=== PATIENT | female | born 1935 | race Caucasian/White ===

== ENCOUNTER 2016-07-30 18:20 | Inpatient (IN) | payer MEDICARE, BC ==
[~2016-07-30] VITALS: Ht 165.1 cm; Wt 126.1 kg
--- NOTE | ~2016-07-30 | DS ---
PATIENT'S NAME: MARY PARRA [facility] AGE: 80 Y [address] ROOM: [place] [address] [place] [facility] [place]: 07/30/2016 Discharge Summary DISCHARGE DATE: 08/06/2016 FAMILY PHYSICIAN: Lucia Preciado PA-C ATTENDING PHYSICIAN: oNah ALFRED PRIMARY DIAGNOSES: 1. Right femur fracture, status post open reduction internal fixation. 2. Polycystic kidney disease. 3. End-stage renal failure, on peritoneal dialysis. 4. Coronary artery disease, status post coronary artery bypass grafting. 5. Pulseless electrical activity in the setting of anesthesia-induced hypotension. 6. Chronic diastolic congestive heart failure. 7. Essential hypertension. 8. Restless legs syndrome. 9. Hyperparathyroidism. 10. Pelvic fractures. 11. Moderate protein-calorie malnutrition. OPERATIONS/PROCEDURES: Open reduction and internal fixation of right femoral neck fracture performed on 08/01/[address] Fall. HISTORY OF PRESENTING ILLNESS/REASON FOR ADMISSION: Please refer to the H and P dictated on 07/30/[address] Alfred. HOSPITAL COURSE: The patient was admitted to the hospital as noted above after a mechanical fall which occurred on the date of admission. She was seen and evaluated by Orthopedic Surgery and recommended for operative repair. Because of electrolyte abnormalities and ongoing peritoneal dialysis, she was felt to be at intermediate risk for surgery. Troponin evaluations noted at the time of initial evaluation were felt to be secondary to her renal dysfunction. Although she has a known history of diastolic congestive heart failure, she was felt to be adequately compensated and remained compensated over the course of her hospital stay. At the point of operative repair, the patient became profoundly hypotensive at the initiation of propofol. She did develop an episode of pulseless electrical activity and was resuscitated with fluids and pressors. She did not have any residual complication after this. Cardiology was consulted because of the episode, however. No specific additional cardiac evaluation or interventions were made, and she remained stable over the course of the remainder of her hospital stay. Her progress was slow. Pain was mildly limiting factor. She did receive a PATIENT'S NAME: MARY PARRA [facility] AGE: 80 Y [address] ROOM: [place] [address] [place] [facility] [place]: 07/30/2016 Discharge Summary DISCHARGE DATE: 08/06/2016 FAMILY PHYSICIAN: Lucia Preciado PA-C ATTENDING PHYSICIAN: Noah ALFRED variety of supportive cares and clinical monitoring. Nephrology continued to provide assistance, and she continued cycling with her peritoneal dialysis machine. She did receive physical therapy and occupational therapy. A variety of options for long-term care and retirement were looked at. Because of her multiple medical comorbidities and expected extended recovery, Physiatry was consulted. [facility] she would be a suitable candidate for inpatient rehab and arrangements were made for her to be transferred there. By the end of the day on 08/06/2016, it was felt she would be stable enough for discharge to inpatient rehab with plans for close clinical followup with Physiatry, the hospitalist service, and Orthopedic Surgery. DISCHARGE INSTRUCTIONS: DIET: Renal prudent as tolerated. ACTIVITY: Nonweightbearing right lower extremity. Weightbearing as tolerated on the left lower extremity. She will have ongoing physical therapy, occupational therapy on the rehab floor. MEDICATIONS: 1. Ascorbic acid 500 mg p.o. daily. 2. Atorvastatin 10 mg p.o. q.h.s. 3. Calcitriol 0.25 mcg p.o. daily. 4. Carvedilol 6.25 mg p.o. b.i.d. 5. Vitamin D 1000 units p.o. daily. 6. Colace 100 mg p.o. b.i.d. 7. Pepcid 20 mg p.o. daily. 8. Gentamicin topical daily. 9. Heparin 5000 units subcu b.i.d. for deep venous thrombosis prophylaxis. 10. Aspirin 81 mg p.o. daily. 11. Losartan 25 mg p.o. b.i.d. 12. Reglan 5 mg p.o. q.a.c. 13. Metolazone 2.5 mg p.o. q. Tuesday and Tuesday at 8:30 a.m. 14. Fish oil 2000 mg p.o. b.i.d. 15. MiraLAX 17 g p.o. daily. 16. Mirapex 0.125 mg p.o. q.h.s. 17. Renvela 1600 mg p.o. t.i.d. 18. Demadex 100 mg p.o. b.i.d. 19. Vitamin E 400 mg p.o. daily. 20. Acetaminophen 500-1000 mg p.o. q.6 hours p.r.n. 21. [place] 5/325, 0.5-1 mg p.o. q.6 hours p.r.n. pain. 22. Tessalon Per[place] 100 mg p.o. t.i.d. p.r.n. 23. Dulcolax 10 mg ID daily p.r.n. PATIENT'S NAME: MARY PARRA [facility] AGE: 80 Y [address] ROOM: [place] [address] [place] [facility] [place]: 07/30/2016 Discharge Summary DISCHARGE DATE: 08/06/2016 FAMILY PHYSICIAN: Lucia Preciado PA-C ATTENDING PHYSICIAN: Noah ALFRED 24. Loratadine 10 mg p.o. daily p.r.n. 25. Milk of magnesia 30 mL p.o. daily p.r.n. 26. Nitroglycerin 0.4 mg sublingually q.5 minutes x3 p.r.n. chest pain. 27. Senna 2 tablets p.o. q.h.s. 28. Erythropoietin 40,000 units subcu with dialysis per Nephrology direction. Total time spent on discharge process 45 minutes. MD MARIANNE FOSS/yoel /[id number] d: 08/07/16 0308 t: 08/19/16 1814, DISCHARGE SUMMARY
--- NOTE | ~2016-07-30 | ECHO ---
Transthoracic Echocardiography Report (TTE) Demographics Patient Name MARY PARRA Date of Study 07/31/2016 Patient Number [id number] Visit Number [id number] Date of 1935 Room Number G3218 Gender Female Number Age 80 year(s) Referring Field Support Technician Jean-Claude RVT, RDCS Physician Nadia Physician Interpreting Esteban Cordova Exercise Instructor Physician Wale Cheema MD Supervising Ordering Melony Ashford MD, MD/MLP Physician Nurse Stress Watch Repairer Apprentice Conclusions Contractility Score Summary Normal Left Ventricular contractility was noted. Summary Normal LV/RV size and systolic function. The estimated left ventricular ejection fraction is 65-70%. Moderate concentric left ventricular hypertrophy. Diastolic assessment reveals Grade I diastolic dysfunction. Mild biatrial enlargement. No significant valvular disease. Procedure Type of Study TTE procedure:2D Echocardiogram, M-Mode, Doppler , Color Doppler. Procedure Date Date: 07/31/2016 Start: 08:26 AM Study Location: Inpatient Portable Technical Quality: Adequate visualization Indications:Preop cardiac evaluation. Additional Indications:elevated troponin Appropriate Use Criteria: 9 Patient Status: DIMA HR: 79 bpm BP: 122/59 mmHg M-Mode/2D Measurements LV Diastolic Dimension: 3.63 cm LV Systolic Dimension: 1.78 cm LV Septum Diastolic: 1.28 cm LV PW Diastolic: 1.15 cm AO Root Dimension: 2.2 cm Cardiac Output: 5.43 l/min AV Cusp Separation: 1.6 cm RV Diastolic Dimension: 1.93 cm LA volume: 25 ml LVOT: 2 cm RV Base: 2 cm LVOT VTI: 21.9 cm RV Mid: 1.83 cm LV Stroke volume: 68.77 ml TAPSE: 1.68 cm TDI-S': 11.2 cm/s Doppler Measurements AV Peak Velocity: 1.05 m/s MV Peak E-Wave: 0.76 m/s AV Peak Gradient: 4.41 mmHg MV Peak A-Wave: 1.29 m/s AV Mean Gradient: 3 mmHg MV E/A Ratio: 0.59 LVOT Peak Velocity: 0.95 m/s MV P1/2t: 95 msec TR Gradient:19.18 mmHg PV Peak Velocity: 0.88 m/s Estimated RAP:3 mmHg PV Peak Gradient: 3.06 mmHg Estimated RVSP: 22 mmHg Estimated PASP: 22.18 mmHg E' Septal Velocity: 0.04 m/s A' Septal Velocity: 0.1 m/s E' Lateral Velocity: 0.08 m/s A' Lateral Velocity: 0.14 m/s Findings Left Ventricle Moderate concentric left ventricular hypertrophy. Diastolic assessment reveals Grade I diastolic dysfunction. Right Ventricle Normal right ventricle structure and function. Left Atrium LA is mildly dilated. Right Atrium RA is mildly dilated. Mitral Valve Mild mitral annular calcification. Trivial mitral regurgitation by color Doppler. Aortic Valve Mild AV sclerosis. Tricuspid Valve Trivial tricuspid regurgitation by color Doppler. Pulmonic Valve PV is not well visualized. Pericardial Effusion No evidence of pericardial effusion. Pleural Effusion No evidence of pleural effusion. Contractility Score LV regional wall motion:(0-Non visualized 1-Normal 2-Hypokinesis 3-Akinesis 4-Dyskinesis 5-Aneurysm) Signature dtt: CLARK OCHOA dtd: 07/31/16 0826 Physician Self Edit
--- NOTE | ~2016-07-30 | CON ---
PATIENT'S NAME: MARY PARRA [facility] AGE: 80 Y [address] ROOM: [address] [place], [place] [address] [place] [facility] [place]: 07[place]/2016 Consultation DISCHARGE DATE: FAMILY PHYSICIAN: PHYSICIAN, UNKNOWN ATTENDING PHYSICIAN: Noah MOORE REFERRING PHYSICIAN: JAMES GARRETT CHIEF COMPLAINT: Right hip pain status post mechanical fall. HISTORY OF PRESENT ILLNESS: This is an 80-year-old female who says that she was walking outside and while she was walking, she accidentally tripped on her right foot and fell on the ground. She fell on her right side of the hip and she denies any head trauma or any syncope or any chest pain or shortness of breath or palpitation prior to the fall. There was also no seizure activity observed. After the fall, the patient complained of pain in the right hip and could not get up. Family member brought the patient to [facility] for evaluation. Over there, the patient had imaging performed and was found to have right hip/femur fracture. The patient was transferred here for further care. At baseline, the patient's METS score is less than 4. The patient has been complaining of exertional dyspnea with daily activities such as walking 1 block or vacuuming or doing house chores. The patient does denies any chest pain at rest or exertion. The patient denies shortness of breath at rest. The shortness of breath is only with exertion. The patient had a history of coronary artery disease status post bypass surgery in March 2016 done in [place]. The patient says that after the surgery, she does not complain of any more chest pain, but she does have exertional dyspnea. The patient also has a history remarkable for end-stage renal disease from polycystic kidney disease, has been on peritoneal dialysis for the last 3 years and she does the peritoneal dialysis every night at home. She also carries the diagnosis of congestive heart failure in the past, but details not clear and that she cannot remember when was the last time she had an echo. REVIEW OF SYSTEMS: As mentioned in the history of present illness. All other systems were reviewed and were negative except those mentioned in the history of present illness. PAST MEDICAL HISTORY: 1. End-stage renal disease from polycystic kidney disease on peritoneal dialysis for the last 3 years every night at home. 2. Coronary artery disease status post CABG back in March 2016 in [place]. 3. Hypertension. 4. History of CHF, not sure which type. PATIENT'S NAME: MARY PARRA [facility] AGE: 80 Y [address] ROOM: [address] [place], [place] [address] [place] [facility] [place]: [place]2016 Consultation DISCHARGE DATE: FAMILY PHYSICIAN: PHYSICIAN, UNKNOWN ATTENDING PHYSICIAN: Noah MOORE 5. Gastroesophageal reflux disease. 6. Hyperlipidemia. 7. Gout. ALLERGIES: REQUIP. HOME MEDICATIONS: We will have to be addressed in the morning with the patient's pharmacy given that the patient does not remember which medication she is taking. The patient does deny any blood thinner. SOCIAL HISTORY: The patient denies any alcohol or illegal drug or cigarette use. PAST SURGICAL HISTORY: 1. Status post open heart surgery bypass in March 2016 in [place]. 2. Status post total abdominal hysterectomy and bilateral salpingo- oophorectomy in the past. FAMILY HISTORY: Father from myocardial infarction at age 60. Also had polycystic kidney disease. Mother from old age from a cause that she could not remember in her 90s. PHYSICAL EXAMINATION: VITAL SIGNS: At the time of my dictation, temperature 98.3, heart rate 84, respirations 16, blood pressure 157/68, saturation 94% on 1.5 L of nasal cannula. GENERAL APPEARANCE: Alert and oriented x3, in no acute distress. HEENT: Pupils equally round and reactive to light. Extraocular muscles intact. Nasal turbinates are normal bilaterally. Moist oral mucosa. NECK: No obvious JVD on examination. CARDIOVASCULAR: Regular rate and rhythm. No murmur. No rubs. No gallops. Normal S1, S2. RESPIRATORY: Clear to auscultation. No rales. No rhonchi. No crackles. No wheezing at the moment. ABDOMEN: Distended from the peritoneal dialysis, soft, nontender, bowel sounds decreased, no palpable mass. EXTREMITIES: No edema in upper or lower extremities. NEUROLOGICAL: Grossly nonfocal. SKIN: No ulcer, no rash, no cyanosis. MUSCULOSKELETAL: Right lower extremity not examined due to right hip fracture. She can wiggle her toes bilaterally. Left lower extremity intact in muscle strength. PATIENT'S NAME: MARY PARRA [facility] AGE: 80 Y [address] ROOM: [address] [place] [address] [place] [facility] [place]: 07/30/2016 Consultation DISCHARGE DATE: FAMILY PHYSICIAN: PHYSICIAN, UNKNOWN ATTENDING PHYSICIAN: Noah MOORE NEUROLOGIC: Sensation intact. Dorsalis pedis pulse and posterior tibialis pulses intact bilaterally +2. Muscle strength did not examine on the right lower extremity due to the right hip fracture. She can wiggle her toes bilaterally. Otherwise, unremarkable. LABORATORY DATA: CPK 129, troponin 0.074, proBNP 9263, white blood cell 10.7, hemoglobin 12.8, hematocrit 40.9, MCV 102.8, platelet 172, glucose 144, BUN 71, creatinine 12.6. Sodium 138, potassium 5.9, chloride 94, CO2 26, calcium 9.8, GFR 3, anion gap 23.9, phosphorus 7.2, albumin 3.1, INR 1.11. PTT 28. Urinalysis 100% leukocytes, 20-50 white blood cells, many bacteria, negative nitrite. The patient denies any dysuria. CK-MB 6.5. IMAGING STUDY: Chest x-ray on admission, the official report is pending. Based on my review, no gross abnormality. X-ray from the outside facility show right hip/femur fracture. EKG on admission on 07/30/2016, at 2327 hours, heart rate of 88, sinus rhythm. Left axis deviation. Evidence of right bundle-branch block which is complete with a QRS of 124 milliseconds. I have evidence of left axis deviation. I do not appreciate ST elevation or ST depression. Sinus rhythm, heart rate of 88, QTc 433 milliseconds, ME of 172 milliseconds. No prior EKG for comparison. ASSESSMENT AND PLAN: 1. Regarding her right hip/femur fractures status post mechanical fall. Defer to the orthopedic surgery for evaluation and management. 2. Regarding her preoperative medical evaluation for noncardiac surgery. Orthopedic surgery is considered as intermediate risk surgery. Currently, the patient is not medically cleared for surgery given that she still has a hyperkalemia. I do not appreciate hyperkalemia changes on EKG at the moment. The patient is currently getting the peritoneal dialysis. I will check another potassium level later on tonight and then 1 more time in the hr specialist. Further plan will depend on clinical course. She is also not medically cleared because I will be getting a transthoracic echo in the morning looking for any wall motion abnormality and ejection fraction and valvulopathy. The patient does have troponin elevation. On EKG, I do not appreciate any ST elevation or depression. The troponin elevation could be from the end-stage renal disease, on dialysis. However she also does have a history of open heart surgery bypass in March 2016 in [place]. I will get an echo in the morning. If echo is abnormal, I will consult Cardiology. I will keep cycling cardiac enzymes PATIENT'S NAME: MARY PARRA [facility] AGE: 80 Y [address] ROOM: [place] [address] [place] [facility] [place]: 07[place]/2016 Consultation DISCHARGE DATE: FAMILY PHYSICIAN: PHYSICIAN, UNKNOWN ATTENDING PHYSICIAN: Noah MOORE every 6 hours for now. I will get a one more EKG in the morning. She has elevation of proBNP 9263, could be from the end-stage renal. I will check one more time in the morning. She is getting the dialysis right now. Further plan will depend on clinical course. 3. History of end-stage renal disease, on dialysis. Currently is on peritoneal dialysis every night. 4. Regarding her history of coronary artery disease status post CABG in March 2016. As mentioned before, refer to the #1 for details. 5. Regarding her hypertension. Home medication will be addressed in the morning. Currently, the patient is getting IV hydralazine p.r.n. for blood pressure control. She is also getting dialysis. 6. Regarding her history of CHF. Not sure which type. I will get an echo in the morning to see for any wall motion abnormality, ejection fraction, and also any valvulopathy. 7. Regarding her history of gastroesophageal reflux disease. The patient is on famotidine 20 mg p.o. daily. 8. Regarding her DVT prophylaxis. The patient will be on foot pump. CODE STATUS: She is a DNR/DNI. Time spent in care on the day of consultation 50 minutes including chart review, interviewing the patient, examining the patient, addressing all the question and concern that the patient had. I also went over the plan of care and answered every question that the patient's daughter had at the bedside. I also went over the plan of care with the nurse. More than half of the total time spent was in counseling and addressing all the questions and concerned that the patient had and going over the plan of care with the patient and the patient family member. The remaining of the total time spent was in chart review and also in the interviewing the patient and examining the patient. Further plan will depend on clinical course. MICHAEL ODEN MD CC/modl /[id number] d: 07/31/16 0320 t: 08/10/16 0653, CONSULTATION REPORT
--- NOTE | ~2016-07-30 | OR ---
PATIENT'S NAME: MARY LAZARO [facility] AGE: 80 Y [address] ROOM: [address] [address] [place] [facility] [place]: 07/30/2016 OR/Procedure Report DISCHARGE DATE: FAMILY PHYSICIAN: PHYSICIAN, UNKNOWN ATTENDING PHYSICIAN: Noah MOORE SURGEON: Rafael Duffy MD TOUCHER UP: DATE OF PROCEDURE: 08/01/2016 DIAGNOSES: 1. Impacted valgus right femoral neck fracture. 2. Multiple pelvic ring fractures. PROCEDURE: 1. Percutaneous screw fixation of right femur fracture. 2. Conservative care of multiple pelvic ring fractures. ANESTHESIA: General. INDICATION: Osteoporosis with valgus impacted right femoral neck fracture and also multiple pelvic ring fractures, very osteoporotic. She is in renal failure, sickly lately, she has been medically optimized. Family understands risks, benefits, and alternatives. Certainly, there is risk that the hip may not heal. Fixation may fail and may need to be converted to an arthroplasty. Also pelvic fractures will further delay her mobilization, risks, benefits, and alternatives have all been discussed. She certainly at risk for additional fractures in the future, needs to avoid falls. DESCRIPTION OF PROCEDURE: Ms Lazaro was taken to the operating room, 2 g of Kefzol given intravenously for prophylaxis. She has been medically optimized including with dialysis. General anesthetic was administered via endotracheal tube. For a period time after the induction, she was in shock, but the patient was resuscitated and felt to be stable for the procedure. She was placed on the hip fracture table, gentle traction, with internal rotation of the right leg and left leg was protected in a flexed position with the candy- cane. Right hip, flank, and lower extremity prepared with DuraPrep, draped sterilely. A 2-cm incision was made in line with the axis of the femoral neck. Using the Synthes 7.3 cannulated screws. Three guide pins were placed. Two superiorly neck, one anterior, one posterior; and one inferiorly in the mid plane. Holes drilled in the lateral cortex and 7.3 cannulated screw was placed. Fixation was adequate. Wound was irrigated. Fascia closed with #1 Vicryl. Subcutaneous tissue closed with 2-0 Vicryl subcuticular, and skin was closed with darrell. Dry sterile dressing placed. Procedure was done without complication. PATIENT'S NAME: MARY LAZARO [facility] AGE: 80 Y [address] ROOM: [place] [address] [place] [facility] [place]: 07/30/2016 OR/Procedure Report DISCHARGE DATE: FAMILY PHYSICIAN: PHYSICIAN, UNKNOWN ATTENDING PHYSICIAN: Noah MOORE ESTIMATED BLOOD LOSS: From the procedure was nil. FLUID REPLACED: Crystalloids. SPECIMENS: None. DRAINS: None. DISPOSITION: To recovery room in stable condition. RAFAEL DUFFY MD DPM/yoel /[id number] d: 08/01/16 1357 t: 08/02/16 1656, OPERATIVE SUMMARY
--- NOTE | ~2016-07-30 | CON ---
PATIENT'S NAME: MARY PARRA [facility] AGE: 80 Y [address] ROOM: [place] [address] [place] [facility] [place]: 07/30/2016 Consultation DISCHARGE DATE: FAMILY PHYSICIAN: Lucia Preciado PA-C ATTENDING PHYSICIAN: Noah MOORE REFERRING PHYSICIAN: JAMES GARRETT Consult for Dr. Syed. HISTORY OF PRESENT ILLNESS: This 80-year-old lady is referred for rehab GIRP evaluation and admission. She is status post, 1. Percutaneous screw fixation of the right femur fracture. 2. Conservative care for multiple pelvic fractures done on 08/01/2016. Details are on record per Dr. Jai Fall. PAST MEDICAL HISTORY: She has medical history as follows: 1. History of end-stage renal disease and on dialysis. She was currently on peritoneal dialysis. 2. Hypertension. 3. Coronary artery disease, status post CABG x4 vessels in March 2016. 4. Congestive heart failure. 5. Reflux gastric disease. 6. Chronic disease anemia. PHYSICAL EXAMINATION: At the present time, alert and oriented x3. She can comprehend and express without much difficulty. Cranial nerves II through XII are within normal limits. She can swallow without difficulty. She is able to saturate at room air. She can move bilateral upper extremities well with muscle strength of about 4- throughout. Bilateral lower extremities, she cannot move the right lower extremity because of pain in the right hip; however, she can wiggle her toes and move her ankle fairly well. Left lower extremity muscle strength is about 3+ to 4- throughout. Neurologically, she is intact. Deep tendon reflexes are present and equal. She has good bowel and bladder control. Sensation was within normal limits. PATIENT'S NAME: MARY PARRA [facility] AGE: 80 Y [address] ROOM: [place] [address] [place] [facility] [place] DATE: 07/30/2016 Consultation DISCHARGE DATE: FAMILY PHYSICIAN: Lucia Preciado PA-C ATTENDING PHYSICIAN: Noah MOORE MEDICATIONS: She is on the following medications: 1. Norvasc. 2. Heparin sodium. 3. Cozaar. 4. . 5. Metolazone. 6. Dilaudid. 7. MOM. 8. Tylenol. 9. . 10. Demadex. 11. Mirapex. 12. Loleta-3. 13. Lipitor. 14. Claritin. 15. Renvela. 16. Coreg. 17. Senna. 18. Nitroglycerin. 19. Vitamin E. 20. Tessalon. 21. Amoxicillin. 22. Protonix. 23. Vitamin D3. 24. Calcitriol. 25. Vitamin C. 26. Allopurinol. 27. Pepcid. 28. Labetalol. 29. Zofran. 30. NaCl 0.9%. 31. Hydralazine. 32. Dextrose. 33. Delflex. 34. Pacific. 35. Percocet. ASSESSMENT AND PLAN: So far, she can move as I described above, all four. However, right hip movement is with marked pain. She is non-weightbearing at the present time. We will put on intensive bedside therapy, and we will continue to work with her. PATIENT'S NAME: MARY PARRA [facility] AGE: 80 Y [address] ROOM: [place] [address] [place] [facility] [place] DATE: 07/30/2016 Consultation DISCHARGE DATE: FAMILY PHYSICIAN: Lucia Preciado PA-C ATTENDING PHYSICIAN: Noah MOORE At the present time, I feel that she will benefit from intensive rehabilitation of about 2 to 3 weeks and follow on an outpatient basis. All the above was explained to her and her . They verbalized understanding and agreement. Thank you for this referral. I will try to get her to Rehab if she is okayed. MD NATALYA LANZA/yoel /[id number] d: 08/04/162054 t: 08/05/16 0754, CONSULTATION REPORT
--- NOTE | ~2016-07-30 | CON ---
PATIENT'S NAME: MARY LAZARO [facility] AGE: 80 Y [address] ROOM: [place] [address] LOCATION: [facility] ADMIT DATE: 07/30/2016 Consultation DISCHARGE DATE: FAMILY PHYSICIAN: PHYSICIAN, UNKNOWN ATTENDING PHYSICIAN: Noah MOORE REFERRING PHYSICIAN: JAMES GARRETT CARDIOLOGY CONSULT REFERRING PHYSICIAN: Dr. Khan. REASON FOR CONSULT: Hypotension during anesthesia induction. HISTORY OF PRESENT ILLNESS: Mrs. Lazaro is an 80-year-old pleasant female with history of renal failure, on dialysis; coronary artery disease, status post coronary artery bypass graft in March 2016. The patient recently had a fall and had fracture of her femur, and today, she had surgery. Prior to surgery, the patient apparently had dialysis and has been receiving Kayexalate for hyperkalemia. She was given propofol by coating line worker, following which her blood pressure dropped, and she was given inotropes and fluid, following which she recovered. Presently, she is asymptomatic. The family is at bedside. No history of chest pain. The patient has chronic mild shortness of breath. No history of palpitations. The patient stated that post coronary artery bypass surgery, she had syncopal episodes, but since discharge from the hospital in March, she has had episodes of orthostatic hypotension, but no history of syncope. REVIEW OF SYSTEMS: The patient denied any recent change in vision. No history of nausea or vomiting. No history of fever. History of fall. The patient is on chronic peritoneal dialysis. No history of significant weight gain or weight loss recently. No history of urinary symptoms recently. PAST MEDICAL HISTORY: End-stage renal disease from polycystic kidney disease, on peritoneal dialysis; coronary artery disease, status post coronary artery bypass graft in March 2016 in [place]; hypertension; gastroesophageal reflux disease; hyperlipidemia; gout. CURRENT MEDICATIONS: See medication list. SOCIAL HISTORY: The patient denied any alcohol or illegal drug or cigarette use. PATIENT'S NAME: MARY LAZARO [facility] AGE: 80 Y [address] ROOM: [place] [id number] LOCATION: [facility] ADMIT DATE: 07/30/2016 Consultation DISCHARGE DATE: FAMILY PHYSICIAN: PHYSICIAN, UNKNOWN ATTENDING PHYSICIAN: OSCAR,Dagmawe FAMILY HISTORY: Per records, her father of myocardial infarction at age 60. He also had polycystic kidney disease. CURRENT CARDIAC MEDICATIONS: 1. Carvedilol 6.25 mg b.i.d. 2. Atorvastatin 10 mg q.h.s. 3. Losartan 50 mg b.i.d. 4. Torsemide 100 mg b.i.d. 5. Metolazone 2.5 mg Tuesday through Tuesday. PHYSICAL EXAMINATION: VITAL SIGNS: Her pulse rate is 67 beats per minute, respiratory rate is 16, blood pressure is 165/61, temperature 97.6. HEENT: Her head is atraumatic and normocephalic. Mild pallor is present. Tongue is moist. NECK: No significant jugular venous distention is present. Mild carotid bruit is audible on the right side. CVS: S1, S2 are audible. They are regular in rate and rhythm. Grade 2/6 ejection systolic murmur is audible in the left parasternal area. RESPIRATORY: Bilateral vesicular breath sounds are audible. ABDOMEN: Distended. Peritoneal dialysis catheter is in place. EXTREMITIES: Showed no significant pedal edema. Right leg has dressing. NEUROLOGIC: The patient is awake, alert, and oriented. SKIN: Warm and dry. LABORATORY DATA: Sodium 141, potassium was 5.9 earlier, chloride 95, CO2 of 26, glucose 124, BUN 67, creatinine 13.2. AST 16, ALT 17. CPK 99, CK-MB 4.7, troponin 0.06 on July 31. White blood cell count 8, hemoglobin 11.1, platelet count 126. Her most recent echocardiogram done yesterday showed ejection fraction 65% to 70%, moderate concentric left ventricular hypertrophy, mild grade 1 diastolic dysfunction, mild biatrial enlargement. ASSESSMENT: 1. Hypotension during induction of anesthesia with propofol. 2. Coronary artery disease, status post coronary artery bypass graft. 3. End-stage renal disease, on peritoneal dialysis. 4. Hypertension. 5. Right femoral neck fracture. PLAN: 1. The patient had hypotension while getting induction for anesthesia with propofol. It was likely due to hypovolemia. The patient received dialysis today and also has been receiving Kayexalate for hyperkalemia, PATIENT'S NAME: MARY LAZARO [facility] AGE: 80 Y [address] ROOM: [place] [id number] LOCATION: [facility] ADMIT DATE: 07/30/2016 Consultation DISCHARGE DATE: FAMILY PHYSICIAN: PHYSICIAN, UNKNOWN ATTENDING PHYSICIAN: Noah MOORE which could have caused intravascular volume depletion. Her hypotension resolved with inotropes and fluid. Presently, she is normotensive and asymptomatic. We will continue to monitor on telemetry and monitor her blood pressure. Monitor fluid intake and output. Avoid volume depletion. Management of volume status per Nephrology. The patient is on diuretics as per Nephrology. We will continue medical therapy for coronary artery disease with carvedilol, atorvastatin. Please consider addition of aspirin 81 mg daily when okay from orthopedic point of view. 2. Mild elevation in troponin. It is likely due to end-stage renal disease with renal failure. Her presentation is not suggestive of acute coronary syndrome. We will continue medical therapy. The plan of care was discussed with the patient and her family. Thank you for allowing us in taking part in the care of this patient. MD WASHINGTON RENEE/yoel /[id number] d: 08/01/16 2337 t: 08/19/16 1733, CONSULTATION REPORT
--- NOTE | ~2016-07-30 | HP ---
PATIENT'S NAME: MARY LAZARO [facility] AGE: 80 Y [address] ROOM: [place] [address] LOCATION: [facility] [place] ADMIT DATE: 07/30/2016 History & Physical DISCHARGE DATE: FAMILY PHYSICIAN: PHYSICIAN, UNKNOWN ATTENDING PHYSICIAN: Noah MOORE DATE OF SERVICE: 07/30/2016 HISTORY OF PRESENT ILLNESS: Mrs. Lazaro, an 80-year-old white female, renal failure on dialysis with osteoporosis, has been getting by at home, fell at home, comminuted fracture of the right pelvis and also an impacted femoral neck fracture. Known to have osteoporosis, was not having pain in the hip before the fall. No syncope. MEDICATIONS: See list. ALLERGIES: SULFA. PAST MEDICAL HISTORY: Renal failure, on dialysis secondary to polycystic kidney disease. She has had recent open heart surgery and osteoporosis. REVIEW OF SYSTEMS: As above. FAMILY MEDICAL HISTORY: Noncontributory. PERSONAL AND SOCIAL HISTORY: Limited ambulator. Lives at home with her . PHYSICAL EXAMINATION: GENERAL: White female, mild distress. HEENT: Hears and sees. Pharynx is clear. LUNGS: Able to take in a deep breath. HEART: Pulse rate is regular. ABDOMEN: Soft, nontender. MUSCULOSKELETAL: Right hip painful motion. Right pelvis tender. Leg length is equal. Right leg is neurovascularly intact. LABORATORY DATA: X-rays from [place] show femoral neck fracture impacted. On the AP view, it is in valgus. Lateral view, slight apex anterior. PATIENT'S NAME: MARY LAZARO [facility] AGE: 80 Y [address] ROOM: [place] [address] LOCATION: [facility] [place] ADMIT DATE: 07/30/2016 History & Physical DISCHARGE DATE: FAMILY PHYSICIAN: PHYSICIAN, UNKNOWN ATTENDING PHYSICIAN: Noah MOORE ASSESSMENT AND PLAN: Long talk with the patient and the family. Certainly, multiple medical problems, sickly patient, extremely osteopenic bone with a valgus impacted fracture. It would be reasonable to attempt cannulated screw fixation. Certainly with the pelvic fractures, she will not immediately be walking no matter what. They understand if the bone is so osteopenic that the fixation fails and cuts through the head, would have to be converted to an arthroplasty. The alternatives to the fixation would be an arthroplasty at this time. All agree that the least invasive operation is the best choice for Mrs. Large. Risks, benefits, and alternatives were all discussed in detail. LUISA DUFFY MD DPM/yoel /[id number] D: [id number] T: [id number] HISTORY & PHYSICAL
--- NOTE | ~2016-07-30 | CON ---
[facility] A[facility] 80 Y [address] ROOM: [place] [address] [place] [facility] [place] DATE: 07/30/2016 Consultation DISCHARGE DATE: FAMILY PHYSICIAN: PHYSICIAN, UNKNOWN ATTENDING PHYSICIAN: Noah MOORE DATE OF CONSULTATION: 08/01/2016 REFERRING PHYSICIAN: JAMES GARRETT REQUESTING PHYSICIAN: Bay Khan MD. REASON FOR CONSULTATION: End-stage renal failure. The patient is due for hemodialysis treatment. HISTORY OF PRESENT ILLNESS: The patient is an 80-year-old white female, who developed end-stage renal failure from autosomal dominant polycystic kidney disease. She is currently on CCPD. The patient is status post fall and she fractured her right hip. She is therefore in the hospital and she needs a routine dialysis treatment. REVIEW OF SYSTEMS: GENERAL: She denies any fever or chills. She is tired. HEENT: Denies any sore throat or sinus congestion. CARDIOVASCULAR: Denies any chest pain, dyspnea on exertion. RESPIRATORY: Denies shortness of breath, cough, or wheezing. GI: Denies abdominal pain. She has nausea and vomiting. : Denies any dysuria. She makes very little urine. She is a dialysis patient. MUSCULOSKELETAL: She has pain in her right hip. She is status post fracture of the right foot. SKIN: Denies any rash or pruritus. Denies any allergies or hay fever. LYMPHATIC/HEMATOLOGIC: Denied any lymph enlargement or easy bruising. Denies any heat or cold intolerance. PSYCHIATRIC: Denies any sadness, crying spells, poor concentration, or panic attack. PAST MEDICAL HISTORY: End-stage renal failure, on peritoneal dialysis, autosomal dominant polycystic kidney disease, anemia of chronic kidney disease, hyperphosphatemia, history of hyperkalemia, osteoporosis, coronary artery disease, hypertension, gastroparesis, restless legs syndrome, secondary hyperparathyroidism. PAST SURGICAL HISTORY: Peritoneal dialysis catheter placement, coronary artery bypass grafting. PAT[facility]'S [facility] AGE: 80 Y [address] ROOM: [place] [address] [place] [facility] [place]MIT DATE: 07/30/2016 Consultation DISCHARGE DATE: FAMILY PHYSICIAN: PHYSICIAN, UNKNOWN ATTENDING PHYSICIAN: Noah MOORE SOCIAL HISTORY: The patient lives at home with her . She has no history of tobacco or alcohol. FAMILY HISTORY: Her son who was on dialysis is status post renal transplantation. ALLERGIES: SHE HAS NO KNOWN DRUG ALLERGIES. MEDICATIONS: 1. Renvela 1600 mg 3 times a day with meals. 2. Reglan 5 mg 3 times a day. 3. Allopurinol 100 mg every day. 4. Nexium 40 mg a day. 5. Losartan 50 mg twice a day. 6. Metolazone 2.5 mg twice a day. 7. Potassium chloride 20 mEq every day. 8. Lipitor 10 mg q.h.s. 9. Torsemide 100 mg twice a day. 10. Carvedilol 6.25 mg twice a day. 11. Calcitriol 0.25 mcg every day. 12. Aspirin 81 mg a day. 13. Nitroglycerin 0.4 mg every day. PHYSICAL EXAM: GENERAL APPEARANCE: This is an 80-year-old white female lying in the hospital bed, not in acute distress. VITAL SIGNS: Temperature 97.6, pulse is 67, systolic blood pressure 165, diastolic 71. HEAD: Normocephalic. HEENT: Pupils are round and equal. Normal eyelids and conjunctivae. Oral cavity is clear. Dry mucosa. NECK: Trachea is central. No thyromegaly. No bruit. CARDIAC: Heart sounds are audible in all the areas without any gallop or murmur. There is no pericardial rub. Pulses regular in rhythm. LUNGS: Bilaterally clear to auscultate. No intercostal retraction. ABDOMEN: Soft and nontender, could not palpate any liver or spleen. No organomegaly. EXTREMITIES: No clubbing or cyanosis. SKIN: No sign of vasculitis. LYMPH: Did not examine lymphatics. NEUROLOGICALLY: She is alert and oriented x3, and grossly nonfocal. PSYCHIATRIC FUNCTION: She has normal speech, but she is a littler drowsy PATIENT'S NAME: MARY PARRA [facility] AGE: 80 Y [address] ROOM: [address] [place] [id number] [place] [facility] [place]MIT DATE: 07/30/2016 Consultation DISCHARGE DATE: FAMILY PHYSICIAN: PHYSICIAN, UNKNOWN ATTENDING PHYSICIAN: Noah MOORE because of effect of anesthesia. LABORATORY DATA: WBC 8.0, hemoglobin 7.9, hematocrit 37.5, and platelet count 138. Glucose 134, BUN of 67, creatinine 13.2, sodium 141, potassium 5.0, chloride 95, bicarb 26, and calcium 9.6, albumin 2.7. ASSESSMENT: 1. End-stage renal failure. The patient is on peritoneal dialysis. 2. Anemia of chronic disease. 3. Secondary hyperparathyroidism. 4. Hyperphosphatemia. 5. Osteoporosis. 6. Status post fall and fracture of the right hip. 7. Coronary artery disease, status post bypass grafting. 8. Mild hyperkalemia. PLAN: I will obtain her outpatient peritoneal dialysis record and continue her on CCPD. We will check her chemistries on a routine basis. We will keep an eye on her hyperkalemia issues. I would like to thank Dr. Khan for allowing me to participate in this patient's care. M MD JONNIE REDMOND/yoel /[id number] d: 08/01/16 1706 t: 08/05/16 1326, CONSULTATION REPORT
[2016-07-30] MEDS ORDERED: RENVELA800 MG PO (20:43)
[2016-07-30] MEDS ORDERED: AMOXICILLIN500 MG PO (20:43)
[2016-07-30] MEDS ORDERED: METOCLOPRAMIDE H5 MG PO (20:44)
[2016-07-30] MEDS ORDERED: ZYLOPRIM100 MG PO (20:44)
[2016-07-30] MEDS ORDERED: NEXIUM40 MG PO (20:45)
[2016-07-30] MEDS ORDERED: COZAAR25 MG PO (20:45)
[2016-07-30] MEDS ORDERED: METOLAZONE2.5 MG PO (20:45)
[2016-07-30] MEDS ORDERED: MIRAPEX0.125 MG PO (20:46)
[2016-07-30] MEDS ORDERED: LIPITOR10 MG PO (20:46)
[2016-07-30] MEDS ORDERED: K-TAB ER20 MEQ PO (20:46)
[2016-07-30] MEDS ORDERED: COREG6.25 MG PO (20:47)
[2016-07-30] MEDS ORDERED: TORSEMIDE100 MG PO (20:47)
[2016-07-30] MEDS ORDERED: GENTAMICIN SULF30 GM TOP (20:47)
[2016-07-30] MEDS ORDERED: TESSALON PERLE100 MG PO (20:47)
[2016-07-30] MEDS ORDERED: CALCITRIOL0.25 MCG PO (20:48)
[2016-07-30] MEDS ORDERED: VITAMIN D1000 UNIT PO (20:48)
[2016-07-30] MEDS ORDERED: SENOKOT-S TABL1 EACH PO (20:48)
[2016-07-30] MEDS ORDERED: FISH OIL 1,0001 EACH PO (20:49)
[2016-07-30] MEDS ORDERED: VITAMIN E400 UNI2 PO (20:49)
[2016-07-30] MEDS ORDERED: ASCORBIC ACID500 MG PO (20:49)
[2016-07-30] MEDS ORDERED: ASPIRIN LO-DOSE81 MG PO ×2 (20:50)
[2016-07-30] MEDS ORDERED: PROCRIT40000 UNIT SUB-Q (20:52)
[2016-07-30] MEDS ORDERED: NITROSTAT0.4 MG SL (20:53)
[2016-07-30 23:19] LABS: BILIRUBIN URINE NEGATIVE (NEGATIVE); BLOOD URINE 10 /UL (NEGATIVE); COLOR URINE YELLOW (YELLOW); GLUCOSE URINE NEGATIVE (NEGATIVE); KETONE URINE NEGATIVE (NEGATIVE); LEUKOCYTES URINE 100 /UL (NEGATIVE); NITRITE URINE NEGATIVE (NEGATIVE); PROTEIN URINE 100 mg/dL (NEGATIVE); TURBIDITY URINE 2+ (CLEAR); UROBILINOGEN URINE NORMAL (NORMAL)
[2016-07-30 23:30] LABS: HEMATOCRIT 40.9 % (30.0-46.0); HEMOGLOBIN 12.8 g/dL (10.0-15.0); MCH 32.2 pg (27.0-34.0); MCHC 31.3 gm/dL (32.0-36.5); MCV 102.8 fl (83.0-98.0); MPV 10.7 fl (9.4-12.4); PLATELET COUNT 172 K/uL (150-450); RBC 3.98 M/uL (3.00-5.00); RDW-CV 16.8 % (11.9-14.6); WBC 10.7 K/uL (4.0-11.0)
[2016-07-30 23:31] LABS: BACTERIA URINE MANY (NEGATIVE); RBC URINE 0-2 #/HPF (NEGATIVE); RENAL EPITH URINE 0-2 #/HPF (NEGATIVE); WBC URINE 20-50 #/HPF (NEGATIVE)
[2016-07-30 23:44] LABS: INR - (THERAPEUTIC) 1.11 (0.92-1.07); PROTIME 11.7 SECONDS (9.8-11.4); PTT 28 SECONDS (25-32)
[2016-07-30 23:50] LABS: ALBUMIN 3.1 gm/dL (3.5-5.0); CALCIUM 9.8 mg/dL (8.5-10.5); PHOSPHORUS 7.2 mg/dL (2.5-4.9)
[2016-07-30 23:51] LABS: ANION GAP 23.9 (10.0-19.0); CREATININE 12.6 mg/dL (0.5-1.1); POTASSIUM 5.9 mMol/L (3.7-5.1)
[2016-07-31 00:17] LABS: BANDED NEUTROPHIL # 0.3 K/uL (0.0-0.1); BANDED NEUTROPHILS % 3 %; LYMPHOCYTE # 0.5 K/uL (0.8-4.0); LYMPHOCYTE % 5 %; MONOCYTE # 1.2 K/uL (0.0-1.0); SEGMENTED NEUTROPHIL # 8.7 K/uL (1.8-7.8); SEGMENTED NEUTROPHIL % 81 %
[2016-07-31 08:16] LABS: CALCIUM 9.7 mg/dL (8.5-10.5)
[2016-07-31 08:17] LABS: ANION GAP 23.8 (10.0-19.0); CREATININE 12.8 mg/dL (0.5-1.1)
[2016-07-31 08:18] LABS: POTASSIUM 5.8 mMol/L (3.7-5.1)
[2016-07-31 08:42] LABS: PERITONEAL FLUID TURBIDITY CLEAR (CLEAR)
[2016-07-31 09:36] LABS: % PERITONEAL FLUID MONO/MACRO 10 % (0-0); % PERITONEAL FLUID NEUT 50 % (0-25)
[2016-07-31] MEDS ORDERED: CLARITIN10 MG PO (13:15)
[2016-08-01 05:01] LABS: HEMATOCRIT 37.5 % (30.0-46.0); HEMOGLOBIN 11.9 g/dL (10.0-15.0); MCH 32.9 pg (27.0-34.0); MCHC 31.7 gm/dL (32.0-36.5); MCV 103.6 fl (83.0-98.0); MPV 10.4 fl (9.4-12.4); PLATELET COUNT 138 K/uL (150-450); RBC 3.62 M/uL (3.00-5.00); RDW-CV 16.9 % (11.9-14.6)
[2016-08-01 05:27] LABS: ALBUMIN 2.7 gm/dL (3.5-5.0); CALCIUM 9.6 mg/dL (8.5-10.5); CREATININE 13.2 mg/dL (0.5-1.1); TOTAL BILIRUBIN 0.4 mg/dL (0.0-1.5); TOTAL PROTEIN 6.5 g/dL (6.0-8.4)
[2016-08-01 05:58] LABS: ABSOLUTE NEUTROPHIL CT (ANC) 6.2 K/uL (1.8-7.8); BANDED NEUTROPHIL # 0.2 K/uL (0.0-0.1); BANDED NEUTROPHILS % 2 %; LYMPHOCYTE % 12 %; MONOCYTE # 0.8 K/uL (0.0-1.0); SEGMENTED NEUTROPHIL # 6.1 K/uL (1.8-7.8); SEGMENTED NEUTROPHIL % 76 %
[2016-08-01 15:23] LABS: EOSINOPHIL % 0.2 %; HEMATOCRIT 35.3 % (30.0-46.0); HEMOGLOBIN 11.1 g/dL (10.0-15.0); IMMATURE GRANULOCYTE # 0.4 K/uL (0.0-0.3); IMMATURE GRANULOCYTE % 4.6 %; LYMPHOCYTE # 0.6 K/uL (0.8-4.0); MCH 32.6 pg (27.0-34.0); MCHC 31.4 gm/dL (32.0-36.5); MCV 103.8 fl (83.0-98.0); MONOCYTE # 1.4 K/uL (0.0-1.0); MONOCYTE % 17.8 %; NEUTROPHIL # (ANC) 5.7 K/uL (1.8-7.8); NEUTROPHIL % 70.4 %; NRBC % 0 /100WBC (0-0.00); PLATELET COUNT 126 K/uL (150-450); RDW-CV 17.1 % (11.9-14.6)
[2016-08-02 03:00] LABS: HEMATOCRIT 34.3 % (30.0-46.0); HEMOGLOBIN 10.7 g/dL (10.0-15.0); MCH 32.4 pg (27.0-34.0); MCHC 31.2 gm/dL (32.0-36.5); MCV 103.9 fl (83.0-98.0); MPV 10.9 fl (9.4-12.4); PLATELET COUNT 125 K/uL (150-450); RDW-CV 16.8 % (11.9-14.6); WBC 8.7 K/uL (4.0-11.0)
[2016-08-02 03:08] LABS: ANION GAP 20.6 (10.0-19.0); CALCIUM 8.9 mg/dL (8.5-10.5); POTASSIUM 4.6 mMol/L (3.7-5.1)
[2016-08-02 03:09] LABS: CREATININE 12.4 mg/dL (0.5-1.1)
[2016-08-02 05:59] LABS: ABSOLUTE NEUTROPHIL CT (ANC) 6.6 K/uL (1.8-7.8); BANDED NEUTROPHIL # 0.4 K/uL (0.0-0.1); BANDED NEUTROPHILS % 5 %; LYMPHOCYTE # 0.4 K/uL (0.8-4.0); LYMPHOCYTE % 5 %; MONOCYTE # 1.7 K/uL (0.0-1.0); SEGMENTED NEUTROPHIL # 6.2 K/uL (1.8-7.8); SEGMENTED NEUTROPHIL % 71 %
[2016-08-03 06:09] LABS: HEMATOCRIT 38.6 % (30.0-46.0); HEMOGLOBIN 12.2 g/dL (10.0-15.0); MCH 32.1 pg (27.0-34.0); MCHC 31.6 gm/dL (32.0-36.5); MCV 101.6 fl (83.0-98.0); MPV 11.9 fl (9.4-12.4); PLATELET COUNT 136 K/uL (150-450); RDW-CV 16.4 % (11.9-14.6); WBC 7.7 K/uL (4.0-11.0)
[2016-08-03 06:20] LABS: ALBUMIN 2.3 gm/dL (3.5-5.0); ANION GAP 22.6 (10.0-19.0); CALCIUM 9.7 mg/dL (8.5-10.5); PHOSPHORUS 8.7 mg/dL (2.5-4.9); POTASSIUM 4.6 mMol/L (3.7-5.1)
[2016-08-03 08:37] LABS: ABSOLUTE NEUTROPHIL CT (ANC) 6.4 K/uL (1.8-7.8); BANDED NEUTROPHIL # 0.1 K/uL (0.0-0.1); BANDED NEUTROPHILS % 1 %; LYMPHOCYTE # 0.5 K/uL (0.8-4.0); LYMPHOCYTE % 7 %; MONOCYTE # 0.8 K/uL (0.0-1.0); SEGMENTED NEUTROPHIL # 6.3 K/uL (1.8-7.8); SEGMENTED NEUTROPHIL % 82 %
[2016-08-04 06:10] LABS: HEMATOCRIT 31.8 % (30.0-46.0); HEMOGLOBIN 10.2 g/dL (10.0-15.0)
[2016-08-06 06:34] LABS: ALBUMIN 2.1 gm/dL (3.5-5.0); ANION GAP 22.8 (10.0-19.0); CALCIUM 9.7 mg/dL (8.5-10.5); POTASSIUM 4.8 mMol/L (3.7-5.1)
[2016-08-06 06:37] LABS: CREATININE 12.2 mg/dL (0.5-1.1); PHOSPHORUS 8.7 mg/dL (2.5-4.9)
== END 2016-08-06 10:59 | DRG 956 ==
LOC: GMSU 19:06
PROVIDERS: Family Medicine; Internal Medicine; Internal Medicine Nephrology; Orthopaedic Surgery; ADMIT Internal Medicine
PROC: B246ZZZ Ultrasonography of Right and Left Heart (ICD-10-PCS; principal; 2016-07-31)
PROC: 0QH634Z Insertion of Internal Fixation Device into Right Upper Femur, Percutaneous Approach (ICD-10-PCS; 2016-08-01)
DX: S72.001A Fracture of unspecified part of neck of right femur, initial encounter for closed fracture (principal); S32.82XA Multiple fractures of pelvis without disruption of pelvic ring, initial encounter for closed fracture; E44.0 Moderate protein-calorie malnutrition; N18.6 End stage renal disease; I50.32 Chronic diastolic (congestive) heart failure; N25.81 Secondary hyperparathyroidism of renal origin; I13.11 Hypertensive heart and chronic kidney disease without heart failure, with stage 5 chronic kidney disease, or end stage renal disease; Q61.2 Polycystic kidney, adult type; W18.30XA Fall on same level, unspecified, initial encounter; D63.8 Anemia in other chronic diseases classified elsewhere; Z66 Do not resuscitate; I25.10 Atherosclerotic heart disease of native coronary artery without angina pectoris; K21.9 Gastro-esophageal reflux disease without esophagitis; M81.0 Age-related osteoporosis without current pathological fracture; Z95.1 Presence of aortocoronary bypass graft; G25.81 Restless legs syndrome; Z68.20 Body mass index [BMI] 20.0-20.9, adult; I95.2 Hypotension due to drugs; T41.295A Adverse effect of other general anesthetics, initial encounter; Y92.234 Operating room of hospital as the place of occurrence of the external cause; Z99.2 Dependence on renal dialysis
CPT/HCPCS: C1713; J0171; J0360; J0690; J1200; J1644; J1650; J2270; J2405; J2916; J7040; J7050; J7120

== ENCOUNTER 2016-08-06 10:50 | Inpatient (IN) | payer MEDICARE, BC ==
[~2016-08-06] VITALS: Ht 160 cm; Wt 53.5 kg
--- NOTE | ~2016-08-06 | CON ---
PATIENT'S NAME: MARY PARRA [facility] AGE: 80 Y [address] ROOM: [id number] [place], [place] [address] [facility] ADMIT DATE: 08/06/2016 Consultation DISCHARGE DATE: 08/27/2016 FAMILY PHYSICIAN: Lucia Preciado PA-C ATTENDING PHYSICIAN: Jaciel Castorena DATE OF CONSULTATION: 08/27/2016 REFERRING PHYSICIAN: JAMES GARRETT LOCATION: General Inpatient Rehab Unit. This is a palliative care referral for hospice discussion. HISTORY OF PRESENT ILLNESS: This 80-year-old female was admitted on 08/06/2016 for an unsteady gait and rehab after having right femur fracture and pelvic ring fractures by Dr. Rafael Fall on 08/01/2016. She was continued on the rehab unit and was getting ready for discharge, and the patient decided she did not want to continue with hemodialysis. She had been doing peritoneal dialysis at home and was to transition into hemodialysis due to peritoneal dialysis not working. The patient had decided she did not want to do that and that she just wanted to go home and be made comfortable. Currently, denies any pain or discomfort. No nausea or vomiting. Does have some lower back pain and foot pain from gout in the past. Takes pain medications off and on, but no pain currently. No shortness of breath. No constipation or diarrhea, just fatigues very easily. She is alert and oriented. PAST MEDICAL HISTORY: End-stage renal disease, on peritoneal dialysis; hypertension; coronary artery disease, status post CABG x4 vessels in March 2016; congestive heart failure; reflux gastric disease, chronic disease; and anemia. SOCIAL HISTORY: The patient lives at home in [place] with her . ALLERGIES: NO KNOWN ALLERGIES. MEDICATIONS: 1. Lipitor 10 mg at h.s. 2. Mirapex 0.125 mg at h.s. 3. Protonix p.o. b.i.d. 4. Renvela 1600 mg t.i.d. 5. Rocaltrol 0.25 mcg daily. PATIENT'S NAME: MARY PARRA [facility] AGE: 80 Y [address] ROOM: [id number] [place], [place] [address] LOC[facility]: [facility] ADMIT DATE: 08/06/2016 Consultation DISCHARGE DATE: 08/27/2016 FAMILY PHYSICIAN: Lucia Preciado PA-C ATTENDING PHYSICIAN: Jaciel Castorena 6. Vitamin D 1000 units daily. 7. Vitamin E 4000 units daily. 8. Zaroxolyn 2.5 mg on Tuesday and Tuesday in the a.m. 9. Zyloprim 100 mg daily. 10. Heparin 5000 units t.i.d. 11. Zofran 4 mg p.o. every 6 hours p.r.n. 12. Claritin 10 mg daily. 13. Enulose daily p.r.n. 14. Enulose 30 mL every 8 hours p.r.n., constipation. 15. Milk of magnesia 30 mL p.r.n., constipation. 16. MiraLAX 17 g p.o. daily. 17. [place] 5/325 mg 1/2 to 1 tab every 6 hours p.r.n., pain or discomfort. 18. Senokot 2 tabs at h.s. p.r.n. 19. Tessalon Perles 100 mg t.i.d. p.r.n., cough. 20. Tylenol Extra Strength 500-1000 mg every 6 hours p.r.n. pain. 21. Ultram 500 mg every 6 hours p.r.n. SOCIAL HISTORY: Lives at home with her . Has 5 children 1 daughter and 4 sons. One daughter is a nurse, Darlene. FAMILY HISTORY: Father had polycystic disease, of an VT at age of 66. Mother had osteoporosis, at 93. Sister had diabetes. SURGICAL HISTORY: Hysterectomy, tonsillectomy, dialysis catheter for peritoneal, CABG 4 vessels in March 2016, and right hip pinning. REVIEW OF SYSTEMS: Review of systems is done and is negative except as mentioned in the HPI. PHYSICAL EXAMINATION: GENERAL: This is an 80-year-old female, well developed, in no acute distress. Alert and oriented, in no acute distress. Tires easily. VITAL SIGNS: Temperature 99.2, pulse 82, respirations 16, blood pressure 157/82, and O2 saturations 91%. She is 5 feet 3 inches, and weighs 117 pounds. SKIN: Warm and dry. Color pale. HEENT: Head: Normocephalic and atraumatic. Sclerae are nonicteric. Conjunctivae are pale pink. Mouth is pink and moist without exudate. LYMPH: No cervical adenopathy or thyromegaly. RESPIRATORY: Clear to auscultation bilaterally. Breath sounds even and regular. PATIENT'S NAME: MARY PARRA [facility] AGE: 80 Y [address] ROOM: [place] [address] LOCATION: [facility] ADMIT DATE: 08/06/2016 Consultation DISCHARGE DATE: 08/27/2016 FAMILY PHYSICIAN: Lucia Preciado PA-C ATTENDING PHYSICIAN: Jaciel Castorena CARDIAC: S1, S2 without murmurs or bruits. No lower extremity edema. ABDOMEN: Soft, nontender. Positive bowel tones. No hepatosplenomegaly. NEURO: Grossly intact. MUSCULOSKELETAL: Appropriate range of motion. Decreased strength in lower extremities. IMPRESSION: 1. Weakness. 2. Fatigue. 3. End-stage renal disease, peritoneal dialysis dependent. PLAN: Met with the patient; her , Jeremias; daughter, Darlene; and son, Serafin. Discussed goals of care. The patient had decided this morning that she did not want to do hemodialysis that was recommended. She and her had talked previously and they had always talked that they would not do hemodialysis. The patient wants to go on comfort cares and hospice. Answered questions and concerns on end-stage kidney disease and comfort cares on hospice. Discussed hospices in [place] area was the [facility]. They do service in [place]. Inquired about equipment needed at home. They already getting equipment through [facility] in [place]. We will notify the hospice team. They do not want a bed or any extra equipment at this time. Hospice notified and will not be able to admit today, but will admit tomorrow morning. We will add in some comfort care medications like Roxanol 20 mg/mL 5-10 mg every 3 hours p.r.n. pain, Ativan 0.5-1 mg every 4 hours p.r.n. anxiety, and atropine 1% ophthalmic drop sublingual 2-4 drops every 4 hours p.r.n., increased respiratory secretions. CODE STATUS AND ADVANCE DIRECTIVE: The patient stated that she had told them on admission she wanted to be a DNR/DNI. Discussed she would may need a POLST form if the patient was transferring. Did complete a POLST (Physician Order for Life-Sustaining Treatment) form. The patient is desiring no chest compressions, do not resuscitate, do not intubate, comfort cares, no feeding tube, and no IV fluids. Original copy sent with daughter. Copy faxed to hospice team. Education was with education being on end-stage renal disease, symptom management, comfort cares, hospice, an advanced directive, and POLST form. Answered all questions and concerns. Total time was 65 minutes for counseling and coordination of care. Thank you for allowing me to assist this patient and family. PATIENT'S NAME: MARY PARRA [facility] AGE: 80 Y [address] ROOM: [place] [address] LOCATION: [facility] ADMIT DATE: 08/06/2016 Consultation DISCHARGE DATE: 08/27/2016 FAMILY PHYSICIAN: Lucia Preciado PA-C ATTENDING PHYSICIAN: Jaciel Castorena PANCHO ORTEGA NP FOR MD GISSELLE MAY/yoel /[id number] d: 08/27/16 2131 t: 08/30/16 1209, CONSULTATION REPORT
--- NOTE | ~2016-08-06 | CON ---
PATIENT'S NAME: MARY PARRA [facility] AGE: 80 Y [address] ROOM: [place] [address] [facility] DATE: 08/06/2016 Consultation DISCHARGE DATE: FAMILY PHYSICIAN: Lucia Preciado PA-C ATTENDING PHYSICIAN: Jaciel Townsend DATE OF CONSULTATION: 08/10/2016 REFERRING PHYSICIAN: JAMES GARRETT Team members reporting include Dr. Townsend; Erlinda Berry, social service liaison; Dianna Henry, RN; Clau Moctezuma, PT; Janna Gutierrez, PT; Kavitha Talley, OT; Jacy Collins, Speech Therapy; Shantel Sanford, therapeutic rec; and Sister Aure Dumont, Pastoral Care. CURRENT STATUS: Rojelio Urena is an 80-year-old woman, admitted to our inpatient rehab unit on August 06 2016 following a right hip femur fracture, who underwent a hip pinning. The patient also has end-stage renal disease and is on peritoneal dialysis. The patient has coronary artery disease, hypertension, history of congestive heart failure, gastroesophageal reflux disease, hyperlipidemia, and gout. The patient is continent of bowel and bladder. We continue to monitor her incision. She takes Tylenol for pain. The patient can transfer sit to supine and supine to sit, minimal assistance; sit to stand, minimal assistance; bed to chair, contact guard assistance using a slide board. Stand pivot transfers are minimal assistance. She is nonweightbearing to the right. She can propel her wheelchair 60 feet at standby assistance. She can dress her upper body at standby to minimal assistance; lower body, dependent to moderate assistance; grooming, standby; bathing, minimal assistance; toilet and shower transfers, dependent to minimal assistance; toileting dependent. The patient is open to pastoral care. She has been complaining of nausea and vomiting. No pharmacy concerns. The patient's Protonix was increased. She is also on Zofran. DISCHARGE PLAN: The patient is receiving 3 hours of PT, OT Tuesday through Tuesday. The patient has daily rehab, nursing, and physiatry involvement as well as therapeutic recreational services 4 days per week. The patient has shown functional improvement and is progressing. Please see her plan of care for specific goals. Plan is for patient to discharge in approximately 10 ti 14 days. Plan is for patient to return to home with care of her family. ERLINDA BERRY FOR JACIEL TOWNSEND MD PATIENT'S NAME: MARY PARRA [facility] AGE: 80 Y [address] ROOM: [place] [address] LOCATION: [facility] ADMIT DATE: 08/06/2016 Consultation DISCHARGE DATE: FAMILY PHYSICIAN: Lucia Preciado PA-C ATTENDING PHYSICIAN: Jaciel Townsend TD/yoel /[id number] d: t: 08/16/16 1523, CONSULTATION REPORT
--- NOTE | ~2016-08-06 | ENPV ---
Vascular Lower Extremities DVT Study Procedure Demographics Patient Name MARY PARRA Date of Study 08/06/2016 Patient Number [id number] Gender Female Date of 1935 Age 80 Visit Number [id number] Height Accession Number [id number] Weight Room Number G3296 BSA BMI Referring Jaciel Castorena Interpreting Krista Urias MD Physician Physician Physician Ordering Reservation Agent Physician Network Applications Specialist Clau Scott, RT,RVT,RDCS Conclusions Summary TECHNIQUE: The veins of the lower extremities on the right and the left were evaluated from the groin to the ankle using agarwal scale, compression, and augmentation. Venous hemodynamics were evaluated with color flow and spectral Doppler. FINDINGS: The deep veins of the legs bilaterally show normal color flow and compressibility without thrombosis. IMPRESSION: NEGATIVE BILATERAL LOWER EXTREMITY VENOUS DOPPLER STUDY. Procedure Type of Study: Veins:Lower Extremities DVT Study, Venous Duplex Lower Extremity Bilateral. Appropriate Use Criteria:9 Patient Status:Routine. Study Location:Inpatient Portable. Technical Quality:Good visualization. - Preliminary reported to:Patient's RN. Velocities are measured in cm/s ; Diameters are measured in cm Right Lower Extremities DVT Study Measurements Right 2D and Doppler Measurements + + + + +------+------+ + !Location !Visualized!Compressibility!Thrombosis!Signal!Reflux!Reflux ! ! ! ! ! ! ! !(sec) ! + + + + +------+------+ + !GSV Thigh !Yes !Yes !None !Phasic!No ! ! + + + + +------+------+ + !Common !Yes !Yes !None !Phasic!No ! ! !Femoral ! ! ! ! ! ! ! + + + + +------+------+ + !Prox !Yes !Yes !None !Phasic!No ! ! !Femoral ! ! ! ! ! ! ! + + + + +------+------+ + !Mid Femoral!Yes !Yes !None !Phasic!No ! ! + + + + +------+------+ + !Dist !Yes !Yes !None !Phasic!No ! ! !Femoral ! ! ! ! ! ! ! + + + + +------+------+ + !Popliteal !Yes !Yes !None !Phasic!No ! ! + + + + +------+------+ + !Gastroc !Yes !Yes !None !Phasic!No ! ! + + + + +------+------+ + !PTV !Yes !Yes !None !Phasic!No ! ! + + + + +------+------+ + !Peroneal !Yes !Yes !None !Phasic!No ! ! + + + + +------+------+ + Left Lower Extremities DVT Study Measurements Left 2D and Doppler Measurements + + + + +------+------+ + !Location !Visualized!Compressibility!Thrombosis!Signal!Reflux!Reflux ! ! ! ! ! ! ! !(sec) ! + + + + +------+------+ + !GSV Thigh !Yes !Yes !None !Phasic!No ! ! + + + + +------+------+ + !Common !Yes !Yes !None !Phasic!No ! ! !Femoral ! ! ! ! ! ! ! + + + + +------+------+ + !Prox !Yes !Yes !None !Phasic!No ! ! !Femoral ! ! ! ! ! ! ! + + + + +------+------+ + !Mid Femoral!Yes !Yes !None !Phasic!No ! ! + + + + +------+------+ + !Dist !Yes !Yes !None !Phasic!No ! ! !Femoral ! ! ! ! ! ! ! + + + + +------+------+ + !Popliteal !Yes !Yes !None !Phasic!No ! ! + + + + +------+------+ + !Gastroc !Yes !Yes !None !Phasic!No ! ! + + + + +------+------+ + !PTV !Yes !Yes !None !Phasic!No ! ! + + + + +------+------+ + !Peroneal !Yes !Yes !None !Phasic!No ! ! + + + + +------+------+ + Signature dtt: Pollo Velasco dtd: 08/06/16 1515 Physician Self Edit
--- NOTE | ~2016-08-06 | CON ---
PATIENT'S NAME: [facility] AGE: 80 Y [address] ROOM: [place] [address] LOCATION: [facility] ADMIT DATE: 08/06/2016 Consultation DISCHARGE DATE: FAMILY PHYSICIAN: Lucia Preciado PA-C ATTENDING PHYSICIAN: Jaciel Castorena DATE OF CONSULTATION: 08/16/2016 REFERRING PHYSICIAN: JAMES GARRETT REFERRING PHYSICIAN: SHANE Dey CONSULTING PHYSICIAN: Concetta Harris MD REASON FOR CONSULTATION: Persistent nausea and vomiting. HISTORY OF PRESENT ILLNESS: The patient is a pleasant 80-year-old white female, who is recently admitted to inpatient rehab unit after hip pinning for a right hip fracture. She also has chronic renal disease and is on peritoneal dialysis. She was complaining of episodes of intermittent dysphagia. She states she has had problems with pills. More recently, the pills have been given with applesauce, and then she has been able to tolerate some of them. She has a longstanding history of heartburn. She haD been using a lot of Tums for this. She stopped them on the advice of the lpta. PAST MEDICAL HISTORY: Significant for end-stage renal disease from polycystic kidney disease, on peritoneal dialysis over the last 3 years; coronary artery disease, status post CABG in March 2016 in [place]; hypertension; history of CHF; gastroesophageal reflux disease; hyperlipidemia; gout. ALLERGIES: REQUIP. MEDICATIONS: 1. Imdur. 2. Vitamin E. 3. Cholecalciferol. 4. Calcitriol. 5. Ascorbic acid. 6. Allopurinol. PATIENT'S NAME: [facility] AGE: 80 Y [address] ROOM: [place] [id number] LOCATION: [facility] ADMIT DATE: 08/06/2016 Consultation DISCHARGE DATE: FAMILY PHYSICIAN: Lucia Preciado PA-C ATTENDING PHYSICIAN: Jaciel Castorena 7. Nystatin. 8. Metoclopramide. 9. Polyethylene glycol. 10. Pantoprazole 40 mg b.i.d. 11. Metolazone. 12. Lactulose. 13. Gentamicin eye drops. 14. Furosemide. 15. Pramipexole. 16. [place]-3 fatty acids. 17. Losartan potassium. 18. Aspirin. 19. Subcu heparin. 20. Atorvastatin. 21. Ondansetron p.r.n. 22. Carvedilol. 23. Senna. 24. Bisacodyl. 25. Sevelamer carbonate. 26. Loratadine p.r.n. 27. Epoetin flor. REVIEW OF SYSTEMS: A detailed 10-point review of system was done and found to be negative other than what is mentioned in the history of present illness and past medical history. PHYSICAL EXAMINATION: GENERAL: Today, she is alert and awake. She seems to be in no acute distress. VITAL SIGNS: Showed temperature 97.7, pulse is 68 per minute, respiratory rate is 16, and blood pressure is 136/96. GENERAL: Reveals mild pallor. No icterus. HEENT: Oral cavity is normal. Nasal passages are clear. CHEST: Clear to auscultation bilaterally. No wheezing. No rhonchi. CARDIOVASCULAR: S1 and S2. ABDOMEN: Soft. I do not elicit any tenderness. She denies any abdominal pain. MUSCULOSKELETAL: She is nonweightbearing after the right hip replacement. She has a pillow under the legs. NEUROLOGICAL: Grossly nonfocal. LABORATORY DATA: Her recent labs show a high ferritin 2300, percent iron is 111 with a TIBC 116, percent transferrin saturation 96%. Complete blood count shows WBC 6.5, hemoglobin 9.8, hematocrit 29.7, platelet count is 208. LFTs are normal. PATIENT'S NAME: MARY PARRA [facility] AGE: 80 Y [address] ROOM: [place] [address] LOCATION: [facility] ADMIT DATE: 08/06/2016 Consultation DISCHARGE DATE: FAMILY PHYSICIAN: Lucia Preciado PA-C ATTENDING PHYSICIAN: Jaciel Castorena IMPRESSION AND PLAN: The patient with a history of persistent nausea, as well as intermittent dysphagia. These symptoms have been going on for a while. She is somewhat adjusting for it now. In view of this, I have scheduled the patient for an upper endoscopy. The procedure of endoscopy was explained in detail to the patient. All risks, including but not limited to, bleeding, perforation, possible need for surgery explained. and asked several questions, and they were duly answered. All questions were answered. We will proceed with an endoscopy tomorrow. MD JODIE THOMAS/yoel /[id number] d: 08/16/16 2309 t: 08/18/16 1748, CONSULTATION REPORT
--- NOTE | ~2016-08-06 | HP ---
PATIENT'S NAME: MARY PARRA [facility] AGE: 80 Y [address] ROOM: [facility] [place] [address] LOCATION: [facility] ADMIT DATE: 08/06/2016 History & Physical DISCHARGE DATE: FAMILY PHYSICIAN: Lucia Preciado PA-C ATTENDING PHYSICIAN: Jaciel Townsend DATE OF SERVICE: This 80-year-old lady is admitted to a rehab unit at [place], [place] on 08/06/2016 for continuous medical treatment and intensive rehabilitation. 1. Unstable gait. 2. Dependent activities of daily and self-care. 3. Status post impacted right femur neck fracture, status post percutaneous screw fixation of the right femur fracture. 4. Status post multiple pelvic ring fractures. Conservative care of multiple pelvic ring fractures. Surgery done on 08/01/2016, details on record per Dr. Rafael Fall MD. She is at the present time nonweightbearing until orthopedic surgeon will advise otherwise. She is admitted for intensive rehabilitation and continuous medical treatment with unstable gait, dependent activities of self-care, and at high risk of falling. Comorbid conditions. She is with a medical history of followin. End-stage renal disease, on dialysis. 2. Hypertension. 3. Coronary artery disease, status post CABG x4 vessels in March 2016. 4. Congestive heart failure. 5. Reflux gastric disease. 6. Chronic disease, anemia. This lady lives with and he is able to help and she is also followed for chronic renal failure with Dr. Syed, our phlebotomy technician. She is at the present time weightbearing as tolerated on left lower extremity. Alert and oriented x3. Vital signs are as follow: Blood pressure 108/55, temperature 97.6, pulse 79 and regular, respiration rate is 14 and regular. She is 5 feet 5 inches tall and weighs 126.1 kg. ALLERGIES: NONE REPORTED TO MEDICATIONS. PATIENT'S NAME: MARY PARRA [facility] AGE: 80 Y [address] ROOM: [id number] [place], [place] [address] LOCATION: [facility] ADMIT DATE: 08/06/2016 History & Physical DISCHARGE DATE: FAMILY PHYSICIAN: Lucia Preciado PA-C ATTENDING PHYSICIAN: Jaciel Townsend MEDICATIONS: She is on the following medications: 1. Delflex 2.5% with dialysis. 2. Delflex 1.5% dextrose 5 L bag with dialysis. 3. Zyloprim 100 mg p.o. daily. 4. Amoxicillin 2000 mg p.o., dental prophylaxis. 5. Vitamin C 500 mg p.o. daily. 6. Lipitor 10 mg p.o. at bedtime. 7. Rocaltrol 0.25 mcg daily. 8. Coreg 6.25 mg twice daily with meals, hold if systolic blood pressure lower than 110. 9. Vitamin D 1000 units every day. 10. Colace 100 mg p.o. twice daily. 11. Pepcid 20 mg p.o. q.i.d. 12. Gentamicin sulfate 3 drops as described. 13. Heparin 5000 units subcu twice daily. 14. Cozaar 25 mg p.o. twice daily. 15. Reglan 5 mg p.o. 3 times daily before meals. 16. 2.5 mg p.o. on Tuesday and Tuesday at 0830 hours. 17. Fish oil 2000 mg p.o. twice daily. 18. MiraLAX 17 g p.o. daily. 19. Mirapex 0.125 mg p.o. every night at bedtime. 20. Renvela 1600 mg p.o. 3 times daily with meals. 21. Demadex 100 mg p.o. twice daily. 22. Vitamin E 400 units p.o. daily. 23. NaCl 250 mL IV per protocol. 24. Tylenol Extra Strength 500-1000 mg q.6 hours p.r.n., do not exceed acetaminophen 4 g q.24 hours. 25. [place] 5/325 0.5-1 tablets q.6 hours p.r.n., again do not exceed acetaminophen 4 g q.24 hours. 26. Tessalon Perles 100 mg p.o. 3 times daily as needed. 27. Dulcolax 10 mg rectally p.r.n. as needed daily. 28. Claritin 10 mg p.o. daily p.r.n. 29. Milk of magnesia 30 mL as needed. 30. Nitrostat 0.4 mg sublingually as needed p.r.n. 31. Senokot 2 tablets p.o. at bedtime as needed p.r.n. 32. Procrit 57502 units subcu per Renal. The patient is able to carry some weight on the left lower extremity. At the present time, she has some pain in the calves. We will send for an evaluation with ultrasound of both legs to see if there is any DVT. All the above was explained to her in detail. She verbalized understanding, in agreement with plan of care. She will stay with us for about maybe 2-3 weeks aiming to discharge on modified independence. She will be on PT, OT, and Speech. PATIENT'S NAME: MARY PARRA [facility] AGE: 80 Y [address] ROOM: [place] [address] LOCATION: [facility] ADMIT DATE: 08/06/2016 History & Physical DISCHARGE DATE: FAMILY PHYSICIAN: Lucia Preciado PA-C ATTENDING PHYSICIAN: Jaciel Townsend We will send in a.m. for urinalysis, CBC, CMS, and prealbumin. We will keep on Dr. Rafael Fall, Dr. Syed, and [facility] to follow as necessary. JACIEL TOWNSEND MD WMS/modl /[id number] D: [id number] T: [id number] HISTORY & PHYSICAL
--- NOTE | ~2016-08-06 | CON ---
PATIENT'S NAME: AYANNA PARRA [facility] AGE: 80 Y [address] ROOM: [address] [place] [address] LOCATION: [facility] ADMIT DATE: 08/06/2016 Consultation DISCHARGE DATE: 08/27/2016 FAMILY PHYSICIAN: Lucia Preciado PA-C ATTENDING PHYSICIAN: Jaciel Townsend DATE OF CONSULTATION: 08/24/2016 REFERRING PHYSICIAN: JAMES GARRETT Team members reporting include Dr. Townsend; Erlinda Berry, social sciences department chair; Shelly Wu, RN; Clau Moctezuma, PT; Janna Gutierrez, PT; Kavitha Talley, OT; Jacy Collins, Speech Therapy; Shantel Sanford, therapeutic rec; and Sister Aure Watters, Pastoral Care. CURRENT STATUS: Ayanna is an 80-year-old woman, admitted to our inpatient rehab unit following a right femur neck fracture with pinning. She is on peritoneal dialysis with end-stage renal disease. She has actually no urine output. She is on a renal low fat diet. She is taking Ensure Compact b.i.d. She can transfer sit to supine and supine to sit, contact guard assistance to minimal assistance; squat pivot transfer, standby assistance. She can propel her wheelchair 50 feet on leveled surfaces at standby assistance and extra time. She can dress her upper body at standby, lower body, minimal to max assistance; grooming, standby; bathing, minimal assistance; shower transfers, contact guard assistance; and feeding, standby. She has met 1/4 short-term OT goals. Comprehension is at standby to mod I; language and expression, standby with occasional word-finding problems; memory and problem solving, minimal to standby assistance. The patient will continue to work on car transfers into the car. She is very open to Pastoral Care and is close to her family. Nystatin is supposed to stop on Tuesday. DISCHARGE PLAN: Initially, the patient was to discharge on Tuesday, August 27, 2016, with home health care; however, the patient decided late on August 26, 2016, that she wanted to go home with hospice care as she wanted to discontinue her dialysis services. Hospice services were set up through [facility]. ERLINDA BERRY FOR JACIEL TOWNSEND MD TD/yoel PATIENT'S NAME: AYANNA PARRA [facility] AGE: 80 Y [address] ROOM: [place] [address] LOCATION: [facility] ADMIT DATE: 08/06/2016 Consultation DISCHARGE DATE: 08/27/2016 FAMILY PHYSICIAN: Lucia Preciado PA-C ATTENDING PHYSICIAN: Jaciel Townsend /[id number] d: 08/30/161958 t: 09/17/16 [facility], CONSULTATION REPORT
--- NOTE | ~2016-08-06 | CON ---
PATIENT'S NAME: AYANNA PARRA [facility] AGE: 80 Y [address] ROOM: [place] [address] LOCATION: [facility] ADMIT DATE: 08/06/2016 Consultation DISCHARGE DATE: 08/27/2016 FAMILY PHYSICIAN: Lucia Preciado PA-C ATTENDING PHYSICIAN: Jaciel Townsend DATE OF CONSULTATION: 08/17/2016 REFERRING PHYSICIAN: JAMES GARRETT Team members reporting include Dr. Townsend; Erlinda Berry, social sciences chair; Dianna Henry, RN; Clau Moctezuma, PT; Janna Gutierrez, PT; Kavitha Talley, OT; Jacy Collins, Speech Therapy; Shantel Sanford, therapeutic rec; and Sister Aure Watters, Pastoral Care. CURRENT STATUS: Ayanna is an 80-year-old woman, admitted to our inpatient rehab unit following a right hip fracture. She is also on peritoneal dialysis for end-stage renal disease. No skin issues. The patient does not have any urine output. She will be having an EGD as of this date. Taking Tylenol for pain. The patient does have some thrush that we are treating. She is getting Ensure Compact b.i.d., and her prealbumin is 23. She can transfer sit to supine and supine to sit at contact guard assistance; sit to stand and stand to sit, contact guard assistance to standby assistance; and bed to chair, doing a scoot technique at standby assistance. She can propel her wheelchair 60 feet at standby assistance. She has met 1/7 long-term PT goals. The patient can dress her upper body at standby; lower body moderate assistance; grooming standby, bathing min assistance; toilet and shower transfers doing a scoot technique at minimal assistance; and toileting, max assistance. She has met 2/5 short-term OT goals. The patient's comprehension is at minimal assistance; language and expression, minimal assistance; memory, max assistance; and problem solving, moderate assistance. Car transfers are currently at standby assistance to contact guard assistance using a slide board. The patient is very close to her family and open to pastoral care. No pharmacy concerns. DISCHARGE PLAN: Patient is receiving 3 hours of PT, OT, and speech Tuesday through Tuesday. The patient has daily rehab, nursing, and physiatry involvement as well as therapeutic recreational services 4 days per week. The patient has shown functional improvement and is progressing. Please see her plan of care for specific goals. Plan is for patient to discharge in approximately 10 days. Plan is for patient to go home with 24-hour care from her family. PATIENT'S NAME: AYANNA PARRA [facility] AGE: 80 Y [address] ROOM: [place] [address] LOCATION: [facility] ADMIT DATE: 08/06/2016 Consultation DISCHARGE DATE: 08/27/2016 FAMILY PHYSICIAN: Lucia Preciado PA-C ATTENDING PHYSICIAN: Jaciel Townsend ERLINDA BERRY FOR JACIEL TOWNSEND MD TD/modl /[id number] d: 08/30/161951 t: 09/17/16 1232, CONSULTATION REPORT
--- NOTE | ~2016-08-06 | DS ---
PATIENT'S NAME: MARY PARRA [facility] AGE: 80 Y [address] ROOM: [address] [place], [place] [address] LOCATION: [facility] ADMIT DATE: 08/06/2016 Discharge Summary DISCHARGE DATE: FAMILY PHYSICIAN: Lucia Preciado PA-C ATTENDING PHYSICIAN: Jaciel Castorena [facility] COURSE: This 80-year-old lady was admitted to rehab unit at [facility] [place], [place], on 08/06/2016 and is discharged to home on 08/27/2016. 1. Unstable gait. 2. Dependent in activities of daily self-care. 3. Status post falling incident and fracture of the femur, right side, status post percutaneous screw fixation of the right femur. Conservative care of multiple pelvic fractures secondary to same incident of falling. She is, at the present time, doing well. Alert, oriented; however, she is on dialysis and has been on dialysis, followed by automotive professional on a regular basis. During her stay with us also, she was consulted to supervisor mold shop, details on record, Dr. Butterfield. She is with chronic renal failure, end stage, and on dialysis. She is, at the present time, alert, oriented. Vitals: Blood pressure 152/68, temperature 98.5, pulse 82, respirations 16. She can propel her wheelchair 50 feet x 2 . She can perform active range of motion to bilateral upper and lower extremities. She is, at the present time, not to drive until she is reevaluated. She is to follow with her family physician as soon as possible. Follow with Dr. Butterfield and Dr. Rafael Fall as he sees fit. Follow up with Dr. Syed as he sees fit. She is on the following medications: 1. Delflex 1.5% with dialysis 30 days. 2. Zyloprim 100 mg daily. 3. Amoxicillin 2000 mg p.o. dental prophylaxis. 4. Aspirin low dose, 81 mg, p.o. daily at bedtime. 5. Lipitor 10 mg p.o. at bedtime. 6. Dulcolax suppository 10 mg rectally daily. PATIENT'S NAME: MARY PARRA [facility] AGE: 80 Y [address] ROOM: [address] [address] LOCATION: [facility] ADMIT DATE: 08/06/2016 Discharge Summary DISCHARGE DATE: FAMILY PHYSICIAN: Lucia Preciado PA-C ATTENDING PHYSICIAN: Jaciel Castorena 7. Rocaltrol 0.25 mcg daily. 8. Coreg 6.25 mg twice daily. 9. Vitamin D 1000 units p.o. daily. 10. Colace 100 mg p.o. b.i.d. 11. Genoptic 3 drops daily. 12. Heparin units subcu 3 times daily. 13. Cozaar 25 mg p.o. twice daily. 14. Zaroxolyn 2.5 mg p.o. on Tuesday and Tuesday. 15. Protonix 40 mg p.o. daily. 16. Mirapex 0.125 mg p.o. daily at bedtime. 17. Renvela 1600 mg p.o. 3 times daily with meals. 18. Demadex 100 mg p.o. twice daily. 19. Vitamin E 400 give one p.o. daily. 20. Tylenol Extra Strength 500 to 1000 mg p.o. q.6 hours, 36, to not exceed acetaminophen 4 g q.24 hours. 21. Angelica 5/325 half to one tablet p.o. q.6 hours as needed, 36 of them, renewal per her family physician. 22. Enulose 30 mL p.o. q.8 hours as needed p.r.n. 23. Milk of magnesia 30 mL as needed p.r.n. 24. Zofran 4 mg p.o. q.6 hours, 30 days, renewal per her family physician on all her medication. 25. MiraLAX 17 g p.o. daily p.r.n. 26. Senokot 2 tablets at bedtime as needed. 27. Ultram 50 mg q.6 hours as needed, give for 30 days. She is given home health, PT, OT, speech, and aide 3 times per week for the coming 30 days and renewal through her family physician. Again, she is not to drive and/or operate any mechanical device. She should follow with Dr. Rafael Fall, Dr. Syed, and Dr. Butterfield as each sees fit, and she should follow with her family physician as soon as possible. All the above was explained to her and her in detail. They verbalized understanding and agreement. MD NATALYA LANZA/modl /[id number] d: 08/26/16 1333 t: 08/27/16 0709, DISCHARGE SUMMARY
[~2016-08-06 10:50] MED LIST: AMOXICILLIN500 MG PO; ASCORBIC ACID500 MG PO; ASPIRIN LO-DOSE81 MG PO; CALCITRIOL0.25 MCG PO; CLARITIN10 MG PO; COREG6.25 MG PO; COZAAR25 MG PO; FISH OIL 1,0001 EACH PO; GENTAMICIN SULF30 GM TOP; K-TAB ER20 MEQ PO; LIPITOR10 MG PO; METOCLOPRAMIDE H5 MG PO; METOLAZONE2.5 MG PO; MIRAPEX0.125 MG PO; NEXIUM40 MG PO; NITROSTAT0.4 MG SL; PROCRIT40000 UNIT SUB-Q; RENVELA800 MG PO; SENOKOT-S TABL1 EACH PO; TESSALON PERLE100 MG PO; TORSEMIDE100 MG PO; VITAMIN D1000 UNIT PO; VITAMIN E400 UNI2 PO; ZYLOPRIM100 MG PO
--- NOTE | 2016-08-06 14:17 | NUR ---
PATIENT ADMITTED TO [facility] FROM [facility]. SHE FELL ON 07/30 AND HAD A PINNING TO RIGHT HIP ON 07/31. ALERT AND ORIENTED X3. HARD OF HEARING. REPORTS HISTORY OF "DULLNESS" TO HANDS AND FEET. +1 EDEMA TO LOWER RIGHT LEG. RIGHT HIP STAPLED, EDGES APPROXIMATED, NO DRAINAGE. DENIES NEED FOR PAIN MEDICATION. LOWER LEGS TENDER, WAITING FOR NONINVASIVE TO DOPPLER THEM. ON TELE FOR NOW, WAITING FOR DC ORDER. PERITONEAL DIALYSIS AT NIGHT. FEEDS SELF, NO ISSUES SWALLOWING. RED SACRAL AREA, CLOSED. IV TO RIGHT AC, FLUSHES WELL. RENAL DIET, REGULAR CONSISTENCY. BM TODAY. HAS VOID TODAY. NAUSEA AT TIMES. NWB TO RIGHT LEG, 2 ASSIST PIVOT TRANSFER.
--- NOTE | 2016-08-07 04:24 | NUR ---
Significant Event: Patient alert and oriented. Is hard of hearing and forgetful at times. Transfers 1-2 Pivot, Non-weightbearing to R) leg. Roma to R) hip, open to air. Has edema to R) leg. Complaints of feeling tightness in hip, given norco and extra strength tylenol. On Peritoneal Dialysis at night. Emesis of 800, recieved order for PRN Zofran. Cooperative with cares. Follow up:
[2016-08-07 04:46] LABS: HEMATOCRIT 30.8 % (30.0-46.0); MCH 32.3 pg (27.0-34.0); MCHC 32.5 gm/dL (32.0-36.5); MCV 99.4 fl (83.0-98.0); MPV 11.1 fl (9.4-12.4); WBC 5.3 K/uL (4.0-11.0)
[2016-08-07 04:51] LABS: PLATELET COUNT 172 K/uL (150-450)
[2016-08-07 05:11] LABS: ALK PHOS 78 IU/L (33-138); ANION GAP 20.9 (10.0-19.0); AST 24 IU/L (10-40); CALCIUM 9.8 mg/dL (8.5-10.5); CHLORIDE 94 mMol/L (96-110); CO2 23 mMol/L (22-32); POTASSIUM 4.9 mMol/L (3.7-5.1); SODIUM 133 mMol/L (135-145); TOTAL PROTEIN 5.6 g/dL (6.0-8.4)
[2016-08-07 05:13] LABS: ALT < 10 IU/L (12-78); BLOOD UREA NITROGEN 93 mg/dL (6-24); CREATININE 12.6 mg/dL (0.5-1.1); ESTIMATED GFR (MDRD EQUATION) 3; TOTAL BILIRUBIN 0.3 mg/dL (0.0-1.5)
[2016-08-07 05:42] LABS: ABSOLUTE NEUTROPHIL CT (ANC) 3.3 K/uL (1.8-7.8); BANDED NEUTROPHIL # 0.2 K/uL (0.0-0.1); BANDED NEUTROPHILS % 3 %; LYMPHOCYTE # 1.1 K/uL (0.8-4.0); LYMPHOCYTE % 21 %; MONOCYTE # 0.7 K/uL (0.0-1.0); SEGMENTED NEUTROPHIL # 3.2 K/uL (1.8-7.8); SEGMENTED NEUTROPHIL % 60 %
--- NOTE | 2016-08-07 15:47 | NUR ---
A-NEW ADMIT TO [facility] DOES PD. ISSUES WITH NAUSEA/VOMITING; TESTING BEING DONE TODAY. HT: 63 IN. ADMIT WT TO [facility] (WHEELCHAIR SCALE): 55.5 KG. BMI: 21.6 LABS: NA 133, K+ 4.9, LGU 113, BUN 93, RESPIRATORY THERAPY DIRECTOR 12.6, ALB 2.0, PHOSPHORUS 8.7, PREALB 20.0 MEDS: ZAROXOLYN, VIT E, MIRALAX, PEPCID, ROCALTROL, VIT C, ZYLOPRIM, DEMADEX, COALCE, REGLAN, PRN BOWEL MEDS, NORCO DIET RX: RENAL/LOW FAT. ENSURE COMPACT BID. PO INTAKE 25-50%. PT'S [id number] COOKS AND BRINGS PT HER MEALS AT EACH MEAL. SHE HAS BEEN FOLLOWING A RENAL DIET FOR SOMETIME AND BOTH PT AND PT'S [id number] ARE VERY KNOWLEDGEABLE ABOUT THE RENAL DIET. EST NUTR NEEDS: 1771-9200 KCALS (30-35 KCALS/KG) 67-83 GM PROTEIN (1.2-1.5 GM/KG) 1 ML FLUID/KCAL D-AT NUTRITION RISK W/INADEQUATE ORAL INTAKE R/T ALT. GI FXN AEB C/O N/V, PT REPORT. I-CONTINUE W/ENSURE COMPACT BID M/E-GOAL: PO INTAKE >/=50% BY NEXT F/U 1)F/U PO INTAKE, SUPPLEMENT, LABS, WT, AND POC IN 3-5 DAYS 2)ASSIST NEEDED
--- NOTE | 2016-08-07 17:46 | NUR ---
Significant Event: Patient alert and oriented. Non weight bearing to right leg. 2 assist. Renal and low fat diet. Family brings in most meals and have been cooking for this diet for a while and are knowledgeable. Does peritoneal dialysis at night. Accurate I&O and daily weight. [place] to right hip intact. Took Zofran IV due to 500ml emesis. Suppository given with scant results. MD here and KUB ordered. Patient is constipated. Soaps suds enema ordered. Patient taking Tylenol for pain. Follow up:
--- NOTE | 2016-08-08 04:19 | NUR ---
Significant Event: Patient alert and oriented. Can be forgetful at times. Hard of hearing. Transfers 1-2A Pivot, non weight bearing to R) leg. Roma intact, open to air. Edema to R) leg. Tylenol last given at 2354 for tightness in hip. Soapsuds enema given with minimal results. Peritoneal dialysis on at night. VSS. Cooperative with cares. Follow up:
--- NOTE | 2016-08-08 15:34 | NUR ---
Significant Event: Patient alert and oriented. Up with 1-2 assist. Non weight bearing to right leg. Pivot transfer. Roma to right hip intact. Peritoneal dialysis at night. Saline lock. Accurate I&O and daily weight. Taking tylenol for pain. Milk of Magnesia and dulcolox suppository given today with no results. Just passed gas. No nausea or vomiting today. Feels much better today. Follow up:
--- NOTE | 2016-08-09 04:19 | NUR ---
Significant Event: Patient alert and oriented. Transfers 1-2A Pivot, non weight bearing to R) leg. [place] to R) hip, open to air and intact. Tylenol and [place]enn[place] given with HS pills. Emesis of 550. Aromatherapy placed to help with nausea. PRN Zofran given. Had two moderate BM's and passing gas. On peritoneal dialysis at night. Accurate I&O. Daily weight. Saline lock to R) AC. VSS. Cooperative with cares. Follow up:
--- NOTE | 2016-08-09 17:03 | NUR ---
Significant Event:PATIENT ALERT AND ORIENTED BUT IS FORGETFUL. VSS. TRANSFERS WITH 1 ASSIST, GAIT BELT PIVOT TRANSFER. SHE IS NON WEIGHT BEARING ON HER RIGHT LEG. TOLERATES THERAPY FAIR. HAS BEEN NAUSEATED SINCE LAST NIGHT BUT IS FEELING BETTER THIS AFTERNOON. HAS NOT EATEN MUCH. DID EAT SOME JELLO AND TOAST THIS AFTERNOON AND SOME PEARS. GIVEN ZOFRAN THIS AM AT 0840. PD CATH INTACT. HAS DENIED PAIN AND REFUSED ANY TYLENOL WHEN OFFERED. WILL MONITOR. FAMILY AT BEDSIDE ALL SHIFT. Follow up:
--- NOTE | 2016-08-10 05:10 | NUR ---
Significant Event: dialysis started at 1930. transfers with 1-2 assist up to wheel chair, non weight bearing to rt. alert and oriented but forgetful. c/o some nausea, but refused zofran. pain to rt lower extremity with movement, denies need for pain med. darrell to rt hip, ecchymosis. sl to rt AC, flushes well. Follow up:
[2016-08-10 07:00] LABS: ALBUMIN 2.2 gm/dL (3.5-5.0); ALK PHOS 92 IU/L (33-138); AST 24 IU/L (10-40); CALCIUM 9.8 mg/dL (8.5-10.5); CO2 24 mMol/L (22-32); SODIUM 133 mMol/L (135-145); TOTAL PROTEIN 6.2 g/dL (6.0-8.4)
[2016-08-10 07:02] LABS: BLOOD UREA NITROGEN 88 mg/dL (6-24); CHLORIDE 89 mMol/L (96-110); CREATININE 12.5 mg/dL (0.5-1.1); ESTIMATED GFR (MDRD EQUATION) 3; TOTAL BILIRUBIN 0.4 mg/dL (0.0-1.5)
[2016-08-10 07:03] LABS: ALT < 10 IU/L (12-78)
--- NOTE | 2016-08-10 08:33 | NUR ---
D: Therapeutic Recreation Initial Assessment on the 08/10/16 I: Patient seen 2 units to begin initial evaluation. Pt has dx of R femur fx with NWB KAL. R: Patient's current living situation and status: house in town Home entrance steps: 2 with railing Living with: Spouses name: Jeremias # of children: 5 (3 close by) Driving: yes, family can provide transportation Ambulating: I Equipment: has cane Hand Dominance: Right Cotton Chopper strength: N/T Eye sight: glasses, some vision problems Reading ability: N/T Hearing: slight IONE Speech: clear Cognition: alert Comprehension: fair Following directions: yes Initiating: yes Eye contact: good Affect: flat COMMUNITY INVOLVEMENT: grocery shopping, orthodoxy weekly, lihealthfinch club, all orthodoxy groups, qucityguru clubs, [employer] study, [employer] for [employer] travel LEISURE INTERESTS: some TV, read some, computer (games, Internet, work), past chana, word puzzles Patient is referred by medical staff for treatment and evaluation in the following areas: Community Skills, Functional Leisure Skills, Participation, Leisure Education/Behaviors, Family Education, Cognitive, Emotional. Information obtained: Interview, Chart Review, Family resource, Observation, other. BARRIERS TO LEISURE: Physical, Lifestyle (reports of anxiety and depression) Transportation Patient determined to be: APPROPRIATE FOR THERAPEUTIC RECREATION ASSESSMENT. TREATMENT WILL INCLUDE: Community living skills training Functional leisure development Physical skills development Cognitive skills development Social skills development Leisure education Emotional/behavioral adaptation Family education Community resources/packet TARGET EQUIPMENT/INFORMATION: Parking Permit will need Community Resources Energy conservation in community setting Van/Service/Taxi Scrip Adapted Leisure Equipment Stress management/Relaxation techniques Functional car transfers Leisure Education Behaviors: Attitude, Awareness, Participation. Patient functional skills level and potential: Fair, pt demonstrates fair mobility with concerns for coping and pain/stress management. Patient oriented ot TR services on Rehab unit. Pt/family provided input into goals setting and plan of care. Pt's goal is to return home and have assistance. P: Target date set with personal goals established. Will continue with POC focusing on pt/family training and education. For additional information please see Nursing Data Base, PT, OT, CM, ST, initial assessments to [facility] and Interdisciplinary Assessments.
--- NOTE | 2016-08-10 13:15 | NUR ---
Significant Event: PATIENT UP 2 ASSIST PIVOT TO CHAIR/BED, NWB TO RIGHT LEG. [place] TO RIGHT HIP INTACT, STAPLED, NO DRAINAGE. BP MEDS HELD THIS MORNING DUE TO BP IN LOW 100S. ALERT AND ORIENTED X3. FORGETFUL. NO NAUSEA UNTIL NOON, SMALL EMESIS. REFUSED ZOFRAN. TYLENOL FOR PAIN X1. PERITONEAL DIALYSIS AT NIGHT. SALINE LOCK TO RIGHT AC. Follow up:
--- NOTE | 2016-08-10 14:53 | NUR ---
A - NUTRITION FOLLOW-UP. DAILY WEIGHT, STABLE PER RECORD. STRICT I&O'S, PD PT. C/O NAUSEA/VOMITING AT TIMES. LABS: NA 133, GLU 120, BUN 88, CREA 12.5, ALB 2.2, PO4 8.7, PRE-ALB 20. NEW MEDS: LACTULOSE, REGLAN. ON DEMADEX. DIET: RENAL/LOW FAT DIET W/ ENSURE COMPACT BID. PER PT, MD WANTS PT TO TRY TO CONSUME HOSPITAL FOOD INSTEAD FROM HOME. TRIED SIPS OF ENSURE COMPACT, YET TO ABLE TO DRINK THE WHOLE BOTTLE. INTAKE 27% X11 MEALS, RANGE FROM REFUSED TO 75%. ENCOURAGED ORAL INTAKE, PT VOICED UNDERSTANDING. EST NEEDS: [id number] KCAL, 67-83 GRAMS PROTEIN, FLUID NEEDS: 1ML/KCAL OR PER MD D - INADEQUATE ORAL INTAKE RELATED TO DECREASED APPETITE EVIDENCED BY PO 27% X11 MEALS. I - 1) CONTINUE W/ ENSURE COMPACT BID. 2) PLEASE CONSULT IF EN IS DESIRED. M/E - GOAL: PT WILL BE ABLE TO TOLERATE >50% OF MEALS AND AT LEAST ONE ORAL SUPPLEMENT PER DAY IN 3-5 DAYS.
--- NOTE | 2016-08-11 04:19 | NUR ---
Significant Event: Patient alert and oriented. Transfers 2A pivot, non weight bearing to R) leg. [place] to R) hip intact. Denied pain. VSS. Peritoneal dialysis at night. Saline lock to R) AC. Cooperative with cares. Follow up:
--- NOTE | 2016-08-11 16:55 | NUR ---
Significant Event:PATIENT ALERT AND ORIENTED BUT IS FORGETFUL. VSS. TRANSFERS WITH 1-2 ASSIST, GAIT BELT SCOOT OR SLIDEBOARD. FAMIILY AT BEDSIDE ALL SHIFT. HAS NOT HAD ANY NAUSEA TODAY AND HAS EATEN FAIRLY WELL. TOLERATED THERAPY FAIR TODAY. GIVEN TYLENOL THIS AFTERNOON AT 1535 FOR COMPLAINTS OF BACK/HIP PAIN. NO OTHER COMPLAINTS. Follow up:
--- NOTE | 2016-08-12 04:44 | NUR ---
Significant Event:A/O. 1-2 assist transfer; scoot or slide board. Peritoneal dialysis during the night. Saline lock to R) AC flushes well. VSS on room air. [place] to R) hip C/D/I; open to air.NWB to right leg. No emesis this shift. Meds whole with applesauce. REquested Tylenol for discomfort @ 0500. BM this shift. Daily weight. Accurate I&O. Call light in reach. Bed alarm on. Follow up:Move to room 90. NWB RLE
[2016-08-12 10:12] LABS: ALBUMIN 2.1 gm/dL (3.5-5.0); ALK PHOS 87 IU/L (33-138); ANION GAP 21.8 (10.0-19.0); AST 24 IU/L (10-40); CALCIUM 9.5 mg/dL (8.5-10.5); CHLORIDE 90 mMol/L (96-110); CO2 25 mMol/L (22-32); POTASSIUM 4.8 mMol/L (3.7-5.1); SODIUM 132 mMol/L (135-145); TOTAL BILIRUBIN 0.4 mg/dL (0.0-1.5); TOTAL PROTEIN 5.5 g/dL (6.0-8.4)
[2016-08-12 10:16] LABS: ALT < 10 IU/L (12-78); BLOOD UREA NITROGEN 85 mg/dL (6-24); CREATININE 12.3 mg/dL (0.5-1.1); ESTIMATED GFR (MDRD EQUATION) 3
--- NOTE | 2016-08-12 12:19 | NUR ---
A - NUTRITION F/U. DIALYSIS PT. WT STABLE 116-117# THIS WEEK. NA+ 124, GLU 124, BUN/MILLINER HELPER 85/12.3, ALB 2.1. DIET: RENAL LOW FAT. INTAKE VARIES 0-75%, AVERAGING 28%. OFFERED ENSURE COMPACT BID. D - AT RISK W/ INADEQUATE ORAL INTAKE R/T DECRASED APPETITE AEB INTAKE RECORD. I - GOAL: 50% OR BETTER INTAKE. M/E - 1) REC DISCONTINUING LOW FAT RESTRICTION. 2) CONSULT IF EN DESIRED. 3) F/U IN 2-4 DAYS.
--- NOTE | 2016-08-12 13:44 | NUR ---
YSignificant Event: Patient alert and oriented but forgetful. Had an episode this morning with OT when getting in the shower. She just seemed to go "blank" for a few seconds and then forgot what she was doing and what time of day it was. here on the floor and assessed her. Got patient back to bed. Blood pressure was low at 87/73. Called and 500ml normal saline bolus was ordered. Also to check vitals every 4 hours for the next 24 hours, until 9am tomorrow 08/13. was on the floor to see the patient. IV site to right anticubital infiltrated. IV restarted in left forearm. Blood pressures have improved since the bolus. SBP has been 120-140 over DBP 50-70's. Patient is a 2 assist slideboard. Non weight bearing to the right leg. [place] intact to right hip. Daily weight and accurate I&O. Peritoneal dialysis every night. Follow up:
--- NOTE | 2016-08-12 14:46 | NUR ---
[facility] Case Management Prefunctioning and Psycho-Social Initial Assessment for 08/06/16 and Case Conference Note for 08/10/16 D: Initial Echo Vasc TechAssembler [employer]iture and Case Conference Note. I: Input from: patient family, Dr. Khan, Dr. Castorena, Jessie Berry CONTROLS DESIGNER, and Erlinda Berry CLINICAL ACCOUNT EXECUTIVE R: Reason for admission: right hip/femur fracture with hip pinning. End stage renal disease--onPD dialysis. Admission Date to [facility]: 08/06/16 Admission Date to Hospital: 08/06/16 Prior level of functioning: patient was independent with adl's prior to hip fracture. Prior living situation: one story house Financial resources/expectations: patient has Medicare and BC/BS. Resources used: extended tub bench. Resources available: HHC, outpatient therapy, SNF, [facility], [facility], DME. Family support available: family Understands nature of health condition: yes Recognizes impact of health condition on lifestyle: yes Vocational/Educational: retired Behavior/Emotional needs: cues for safety. Monitor for signs and symptoms of depression and anxiety. Legal concerns: none. Discharge goal: home with support of family. Assessment: Ayanna is an 80 year old woman from [place], [place] admitted after a hip fracture. She has good family support. Team conference was held and plan is for patient to stay at least another 7 days. Orientation to the program and CM services completed with patient. Initial plan of care and estimated length of stay discussed, disclosure statement reviewed including patient assessment rights. P: Target date and individual goals established. Please see POC for details. For additional information please see Nursing Data Base, PT, OT, TR, Initial assessments to [facility].
--- NOTE | 2016-08-13 04:09 | NUR ---
Significant Event: Patient is alert and oriented. VSS. Taking VS q 4 hrs for 24 hrs, due to a hypotensive episode yesterday. Last VS due at 8-9 AM today. Up 1-2 assist scoot transfer, NWB to her right leg. [place] intact to her right hip. Patient attempted to take her meds last night and vomited some of them as soon as she took them. Refused to take the rest of her meds and refused Zofran. Patient states she takes to many meds and thats probably why she gets sick. Takes meds whole with applesauce but my want pudding instead. Tylenol given for hip pain at 2330. Had a BM last night. Follow up: Alarm for safety. Accurate I&O.
--- NOTE | 2016-08-13 12:41 | NUR ---
Significant Event: PATIENT UP 1 ASSIST SLIDE TRANSFER. NWB TO RIGHT HIP. ANDRY TO RIGHT HIP INTACT. FORGETFUL AT TIMES, NEEDS REMINDERS. PILLS WHOLE WITH PUDDING. BP MEDS HELD THIS MORNING DUE TO BEING BELOW PARAMETERS. TAKES A LOT OF CONVINCING FOR HER TO TAKE MEDICATIONS. TOOK TYLENOL AT 1100 FOR PAIN. BECOMES NAUSEOUS AFTER MEDICATIONS. PERITONEAL DIALYSIS AT NIGHT, CATH INTACT TO MID ABDOMEN. MUNIR HOSDarvin ON. CONTINENT OF BOWEL AND BLADDER. Follow up:
--- NOTE | 2016-08-13 13:23 | NUR ---
D: TR progress note for 08/13/16. I: Pt seen for 3 units at 1230 for community integration skills building, functional transfers, and safety awareness. R: Pt seen for functional skills building working on mobility, transfers, and community skills in anticipation for discharge back into community with family. Pt completed slideboard transfers in/out of vehicle CGA with max cues for technique and to maintain WB status along with extra time allotted. Pt dependent for slideboard management, SBA for LLE management and min assist for RUE with seat surface adapted by use of trash bag to ease task. Pt tolerated ride with no C/o pain or discomfort, verbalizing enjoyment of session. P: Will continue to see to address goals and plan of care.
--- NOTE | 2016-08-14 04:24 | NUR ---
Significant Event: Patient is alert and oriented, can be forgetful. Up one assist slide transfers. NWB to her right leg. [place] intact to her right hip. Peritoneal dialysis patient cath to her mid left abdomen. Is hooked up to dialysis t/o the night. Saline lock to her left FA. Has had a hypotensive episode on need to monitor and hold b/p meds per parimeters if needed. Push fluids and encourage eating. Appetite is very poor. Trouble at night taking her meds. Vomited and Tuesday right after given a couple meds. Gave Zofran last night then gave meds. Takes meds in applesauce or pudding. Follow up: Encourage fluids and eating. Alarm for safety.
--- NOTE | 2016-08-14 16:43 | NUR ---
Significant Event:PATIENT VERY SLEEPY TODAY. WAKES WITH SOME PROMPTING. TAKES MEDS IN PUDDING BUT STILL HAS SOME TROUBLES. DID GET EVALUATED BY SPEECH TODAY. THEY WILL SEE HER MORE TOMORROW SHE SAID. VSS. TRANSFERS WITH 1 ASSIST, GAIT BELT SCOOT TRANSFER. WENT OUT IN THE WHEELCHAIR WITH HER THIS AFTERNOON. HAS DENIED PAIN TODAY. DID GET NAUSEATED THIS AFTERNOON WHEN SHE GOT BACK. REFUSED ZOFRAN. DID WANT SOME ICE CREAM AND A FAMILY MEMBER BROUGHT SOME IN. WILL MONITOR. NO OTHER COMPLAINTS. Follow up:
--- NOTE | 2016-08-15 01:21 | NUR ---
Significant Event:A/O some forgetfulness noted tonight. 1 assist transfer scoot/slideboard to w//c. NWB to RLE. [place] to right hip open to air and intact. SAline lock to left a/c patent. Denies nausea so far this shift. Currently running peritoneal dialysis, Some drainage issues earlier with tubing kinked by waistband. Meds with applesauce, struggle to get the fish oil down X2. Thrush in mouth, Nystatin swish & spit to treat given. DEnies need for PRN medications at this time. Large BM this shift. HTN 165/68 r/t anxiety? All other vitals wnl. Call light within reach, bed alarm on. Follow up:NWB to RLE. MOnitor BP.
--- NOTE | 2016-08-15 14:55 | NUR ---
Significant Event: Patient alert and oriented. Forgetful at times. 1 assist scoot transfer. Non-weight bearing to the right leg. Daily weight after peritoneal dialysis. Accurate I&O. Takes meds in applesauce or pudding. Saline lock. [place] to right hip. Has thrush to mouth. Nystatin swish and spit. David hose stockings on during the day. Went outside with family today. Follow up:
--- NOTE | 2016-08-16 00:15 | NUR ---
Significant Event:A/O but some forgetfulness noted. Transfers 1 assist scoot or slideboard. Non-weight bearing to Right lower extremity. [place] to right hip intact and open to air. PD cath to abdomen intact. Currently running peritoneal dialysis. Saline lock to Left AC, patent. Thrush is resolving, tongue mostly pink again. HTN @ 162/75 other vitals within normal limits. Denies need for PRN medications at this time. No emesis yet this shift. Call light within reach. Bed alarm on. Follow up:Alarms. Scoot transfer, NWB RLE. Nausea
[2016-08-16 05:40] LABS: HEMATOCRIT 29.7 % (30.0-46.0); HEMOGLOBIN 9.8 g/dL (10.0-15.0); MCV 97.1 fl (83.0-98.0); MPV 11.3 fl (9.4-12.4); RBC 3.06 M/uL (3.00-5.00); RDW-CV 16.8 % (11.9-14.6); WBC 6.5 K/uL (4.0-11.0)
[2016-08-16 05:41] LABS: PLATELET COUNT 208 K/uL (150-450)
[2016-08-16 06:03] LABS: ALBUMIN 2.3 gm/dL (3.5-5.0); ANION GAP 21.9 (10.0-19.0); CALCIUM 9.6 mg/dL (8.5-10.5); POTASSIUM 4.9 mMol/L (3.7-5.1); TOTAL BILIRUBIN 0.4 mg/dL (0.0-1.5); TOTAL PROTEIN 5.9 g/dL (6.0-8.4)
[2016-08-16 06:06] LABS: CREATININE 13.1 mg/dL (0.5-1.1)
[2016-08-16 06:34] LABS: ABSOLUTE NEUTROPHIL CT (ANC) 5.2 K/uL (1.8-7.8); BANDED NEUTROPHIL # 0.1 K/uL (0.0-0.1); BANDED NEUTROPHILS % 2 %; LYMPHOCYTE # 0.8 K/uL (0.8-4.0); LYMPHOCYTE % 13 %; MONOCYTE # 0.5 K/uL (0.0-1.0); SEGMENTED NEUTROPHIL # 5.1 K/uL (1.8-7.8); SEGMENTED NEUTROPHIL % 78 %
--- NOTE | 2016-08-16 12:44 | NUR ---
A-NUTRITION F/U CBW: 52.9 KG; WT FLUCTUATING 53-55 KG. THRUSH IS RESOLVING. NO EMESIS RECORDED SINCE 08/12. PERITONEAL DIALYSIS AT NIGHT. LABS: NA 134, K+ 4.9, GLU 107, BUN 8, HALF SECTION IRONER 13.1, ALB 2.3, PREALB 23.0 MEDS: NYSTATIN, ZYLOPRIM, VIT C, ROCALTROL, VIT D, VIT E DIET RX: RENAL/LOW FAT. ENSURE COMPACT BID. PO INTAKE BITES-100%; AVG IS 39%. THIS IS UP FROM 28% LAST F/U. PT LIKES ENSURE COMPACT. EST NUTR NEEDS: [id number] KCALS AND 67-83 GM PROTEIN D-AT NTURITION RISK W/INADEQUATE NUTRIENT INTAKE R/T ALTERED GI FXN AEB N/V, THRUSH, INTAKE RECORDS, PT REPORT. I-1)CONTINUE W/ENSURE COMPACT BID 2)RECOMMEND D/C LOW FAT RESTRICTION 3)IF EN DESIRED, PLEASE CONSULT M/E-GOAL: PO INTAKE >/=50% BY NEXT F/U 1)F/U PO INTAKE, SUPPLEMENT, WT, LABS, AND POC IN 3-5 DAYS 2)ASSIST NEEDED
--- NOTE | 2016-08-16 15:48 | NUR ---
Significant Event: PT WAS WEIGHED IN HER WHEELCHAIR AFTER LUNCH, WEIGHT WAS NOTED TO BE 53.9 KG. PT DENIED PAIN. PT TOOK PILLS WHOLE IN APPLESAUCE. PTS AND DAUGHTER HERE. GASTRO DOCTOR STOPPED IN TODAY, BUT PATIENT WAS NOT IN HER ROOM SO HE REPORTED THAT HE WOULD COME BACK. PT VOIDED A SMALL AMOUNT AND PASSED GAS ON THE TOILET. PT REQUIRED VERBAL CUES TO NOT PUT WEIGHT ON R)LEG, WAS ABLE TO USE THE BARS TO STAND AND ONLY STAND ON L)LEG. PT RECEIVED EPOGEN SHOT TODAY IN L)ABDOMEN AND HAD LABS DRAWN. PT REQUIRED NURSE TO LIFT HER RIGHT LEG INTO THE BED DURING TRANFER. PT ATE HER LUNCH AND DENIED NAUSEA THIS AFTERNOON. Follow up:
--- NOTE | 2016-08-17 04:08 | NUR ---
Significant Event: Patient alert and oriented. Transfers 1A scoot, non weight bearing to R) leg. Emesis of 200, zofran given. NPO at 4am, heparin held last night and this am for EGD. Takes meds whole in applesauce. VSS. Saline lock to L) forearm. No BM, passing gas. Cooperative with cares. Follow up:
--- NOTE | 2016-08-17 12:59 | NUR ---
D: TR progress note for 08/17/16. I: Pt was to be seen for 2 units at 1030. R: Pt not seen due to conflict with medical procedure, EGD. P: Will continue to see to address goals and plan of care.
--- NOTE | 2016-08-17 17:21 | NUR ---
Patient is alert and oriented X3. Patient was NPO until EGD procedure. Following procedure patient reported swallowing was easier. Speech therapy did a swallow test and patient performed well. Patient had a full liquid diet for lunch. No voids or bowel movements this shift. Patient reports no pain. Ambulation is a scoot with one or two assist and no weight bearing on right leg. Right hip surgical wound is clean and dry. Cooperative and pleasant with cares.
--- NOTE | 2016-08-17 18:24 | NUR ---
Significant Event: HAD EGD DONE WITH NUMEROUS BX TAKEN, TOLERATED WELL. TAKING SOLFT FOODS WITHOUT DIFF. VOIDING W/OUT DIFF...TRANSFERS 1 ASSIST,SCOOT... Follow up:
--- NOTE | 2016-08-18 04:41 | NUR ---
Significant Event: Patient alert and oriented. Transfers 1-2 scoot. NWB to R) leg. Took tylenol with bedtime pills. States swallowing is easier since having the EGD done. Had small bm, and dribbles of urine. Meds whole in applesauce. VSS. Saline lock to R) forearm. Cooperative with cares. Follow up:
--- NOTE | 2016-08-18 11:42 | NUR ---
D: TR progress note for 08/18/16. I: Pt seen for 2 units at 1000 for cognitive thinking, memory, concentration, and coping skills. R: Pt seen for functional skills building working on concentration, sequencing and coping skills doing cognitive trivia task to increase independence with leisure involvement. Pt had C/o pain, seen at bedside. Pt able to categorize, identify and complete cognitive trivia task SBA > min cues with good attention to task and fair sequencing. Session cut short due to Physician's visit. P: Will continue to see to address goals and plan of care.
--- NOTE | 2016-08-18 16:08 | NUR ---
Patient alert and oriented X3. Transfers 1-2 scoot. NWB to right leg. Patient has had several small, loose, brown stools and incontinence of the bowels. Patient reported an upset stomach and nausea. Emesis at 1520 of 100 mL. No nausea with medication administration. Take meds whole in applesauce or vanilla pudding. [place] area and buttocks skin is intact with slight redness.
--- NOTE | 2016-08-18 19:26 | NUR ---
Significant Event:PATIENT ALERT AND ORIENTED THIS SHIFT. CARES PROVIDED BY SITE LEASING AGENT THIS SHIFT. CHARTING REVIEWED AND AGREE WITH CHARTING. HAS DENIED PAIN THIS SHIFT AND NO PRN PAIN MEDS GIVEN. HAS HAD SOME MILD NAUSEA BUT ONLY ONE EMESIS. TRANSFERS WITH 1-2 ASSIST, GAIT BELT AND PIVOT TRANSFER. TOLERATES ACTIVITY FAIR. NO OTHER COMPLAINTS. Follow up:
--- NOTE | 2016-08-19 02:19 | NUR ---
Significant Event:Takes meds whole in applesauce or vanilla pudding, refused hs fish oil tablets as stated she didn't want to push her stomach and cause it to be upset. No emesis. Had small bm at hs. Saline lock leaked when flushed, removed line--did not restart as no scheduled IV meds. Oral cavity and tongue much improved. Red periarea/buttocks--aloe applied. No wt bearing to rt leg, did not observe a transfer this shift as was in bed at start of shift. Peritoneal dialysis set up by the dialysis nurse prior to 1930, few alarms tonight. Did like to take about 4-5 meds, then wait 20-30 min and took the rest of the hs meds. Follow up:Daily weight is needed after dialysis is completed.
--- NOTE | 2016-08-19 12:52 | NUR ---
D: Associate Biological Sales Team Conference Follow up for 08/17/16 I: Input from patient/family R: Met with: patient, , Erlinda Arndt PARCEL WRAPPER Discussed rehab plan, patient progress, discharge plan and estimated length of stay of d/c planned in approx. 10 days. Patient/Family Preference: patient and are in agreement. Anticipated discharge disposition: home with home health care. Education completed: Education was completed with patient regarding length of stay, progress in therapy and discharge plan. Family understands that team is recommending 24 hour supervision for safety and assistance. Assessment/Recommendation: team recommends approx. 10 more days. P: Case Coordination: Ayanna is an 80 year old woman from [place], [place] admitted after left hip fracture. She has good family support. Plan is to d/c home in approx. 10 days. Will set up home health care. Will follow and assist with d/c planning.
--- NOTE | 2016-08-19 14:29 | NUR ---
A - NUTRITION FOLLOW-UP. HAD EGD 08/18, PT REPORTED SWALLOWING BETTER NOW PER SHIFT REPORT. DID C/O NAUSEA AND HAD 1 EMESIS PAST 2 DAYS. DAILY WT, STABLE. PD PT. LABS: NA 134, GLU 107, BUN 80, CREA 13.1, ALB 2.3, ALT 10, PRE-ALB 23 NEW MEDS: NO NEW MEDS. PT IS ON LACTULOSE AND DEMADEX. DIET: RENAL. NO LONGER ON LOW FAT DIET. PT IS ALSO GETTING ENSURE COMPACT BID. INTAKE 49% X9 MEALS, IMPROVED SINCE LAST ASSESSMENT (39%). ATTEMPTED TO VISIT PT BUT NOT IN ROOM. EST NEEDS: 1186-1910 KCAL, 67-83 GRAMS PROTEIN, FLUID NEEDS: 1ML/KCAL D - INADEQUATE ORAL INTAKE RELATED TO ALTERATION IN APPETITE EVIDENCED BY PO 49% X9 MEALS. I - CONTINUE W/ ENSURE COMPACT BID. M/E - GOAL: PT WILL BE ABLE TO TOLERATE >50% OF MEALS AND AT LEAST ONE ORAL SUPPLEMENT PER DAY IN 4-6 DAYS.
--- NOTE | 2016-08-19 15:48 | NUR ---
Significant Event: Patient alert and oriented. Up with 1 assist pivot transfer with toe touch weight bearing right leg. Daily weight. Peritoneal dialysis. Still having nausea and vomiting. Gastic emptying study ordered for tomorrow at 11am. Started patient on sub-q heparin. Follow up:
--- NOTE | 2016-08-20 03:05 | NUR ---
Significant Event: DENIES PAIN. TOOK HS PILLS WITH NO PROBLEMS. DAILYSIS STARTED AT 1999. NPO SINCE MIDNOC TO HAVE GASTRIC EMPTYING STUDY IN AM. HAD BAG BATH LAST TASIA. UP WITH 1 ASSIST. ON HEPARIN SUB Q. HAD 2 SMALL STOOLS ON DAYS. ANDRY TO R) HIP/LEG INTACT. Follow up:
--- NOTE | 2016-08-20 13:39 | NUR ---
D: TR progress note for 08/20/16. I: Pt was to be seen for 2 units at 900. R: Pt not seen due to conflict with medical procedure off Unit. P: Will continue to see to address goals and plan of care.
--- NOTE | 2016-08-20 16:57 | NUR ---
Significant Event:Is A/O.Sleepy today.Gets peritoneal dialysis--abd.tube in place & locked.Had 2-3 emesis this morning.Was unable to do gastric emptying study as she could not keep down what she needed to eat.Going to try again on tuesday.Make NPO after midnoc on Sun.Rt.hip incision with stitches.Non wt.bearing Rt. Follow up:
--- NOTE | 2016-08-21 04:17 | NUR ---
Significant Event:pt alert and oriented, forgetful at times. pleasant with staff and cares. up with 1 assist. pivot transfers, up to bathroom x1 during night. very small void. pt peritoneal dialysis at [facility] with no complications noted. pt takes medication whole. prn zofran given prior to medications. moderate emesis at 2430. pt then rested well awoke at 0330 and wanted bed bath and dressed. retuns to bed and has been resting well since that time. uses call light approp. Follow up:
--- NOTE | 2016-08-21 16:11 | NUR ---
Significant Event: Pt up in room with pivot transfer to w/c then toilet. NWB on right. Mariaa. well. Pt denied pain t/o day. Dialysis nurse unhooked peritoneal dialysis this am. Pt took pills well in applesauce. Did have to spit out one fish oil as she could not get it swallowed (thought she would throw up). She was able to take all meds and meals without emesis today. Moderate BM today. Pt pleasant and cooperative with cares. Hemorrhoids present. Follow up: activity, safety, maintain skin integrity
--- NOTE | 2016-08-21 20:04 | NUR ---
ZOFRAN GIVEN PRIOR TO 2100 MEDS DUE TO NAUSEA AND PREVIOUSLY VOMITTED AT 1845 AFTER MEDS AND FEW BITES OF MEAL.
--- NOTE | 2016-08-21 21:04 | NUR ---
SLEEPING. NO EMESIS OR C/O NAUSEA AFTER 2100 MEDS GIVEN.
--- NOTE | 2016-08-22 03:50 | NUR ---
Significant Event: HAD EMESIS AFTER TAKING FEW BITES OF MEAL AND 1800 MEDS. GAVE ZOFRAN 30 MINUTES PRIOR TO HS MEDS WITH NO EMESIS AFTER. BERYL TURNER. HAS VOICED CONCERNS ABOUT WANTING TO BE TAKEN OFF SOME OF THE MEDS, WANTING TO TALK WITH TODAY ABOUT HER HEALTH ISSUES. ENCOURAGED PATIENT TO SPEAK WITH MD ABOUT HER MEDS, FEELS SHE IS TAKING TOO MANY. DAILYSIS CONTINUES WITH NO PROBLEMS. Follow up:
--- NOTE | 2016-08-22 15:44 | NUR ---
Significant Event: Pt up in room with pivot transfer to w/c and toilet. NWB RT. Mariaa. fair, fatigues. Pt feels weak. Pt had slight nausea with pills at noon, but kept meds and food down at breakfast and lunch. Pt off floor with family off/on t/o day, multiple visitors. Peritoneal dialysis stopped this am by dialysis nurse. Pt pleasant and cooperative with cares. Follow up: activity, safety, dialysis. Pt voices concerns with amt of medication she has to take, voices "she doesn't know if it's all worth it".
--- NOTE | 2016-08-23 09:00 | NUR ---
A-NUTRITION F/U GASTRIC EMPTYING STUDY TODAY. PD CONTINUES. C/O N/V.. CBW: 53.8 KG; STABLE. NO NEW LABS SINCE LAST F/U. MEDS: ZOFRAN DIET RX: NPO. PO INTAKE PRIOR TO NPO HAS BEEN BITES-100% SINCE LAST F/U. AVG IS 43%; THIS IS DOWN FROM 49%. RECEIVES ENSURE COMPACT BID. EST NUTR NEEDS: [id number] KCALS AND 67-83 GM PROTEIN D-AT NUTRITION RISK W/INADEQUATE NUTRIENT INTAKE R/T ALTERED GI FXN AEB N/V, INTAKE RECORDS. I-1)WILL RESUME ENSURE COMPACT WHEN PT'S ORAL DIET RESTARTED. 2)IF ENTERAL NUTRITION DESIRED, PLEASE CONTACT. M/E-GOAL: PO INTAKE >/=50% BY NEXT F/U 1)F/U PO INTAKE, SUPPLEMENT, GI, GASTRIC EMPTYING STUDY RESULTS, AND POC IN 3-5 DAYS 2)ASSIST NEEDED
[2016-08-23 11:39] LABS: ANION GAP 19.9 (10.0-19.0); CALCIUM 9.4 mg/dL (8.5-10.5); CREATININE 12.8 mg/dL (0.5-1.1); PHOSPHORUS 6.2 mg/dL (2.5-4.9); POTASSIUM 4.9 mMol/L (3.7-5.1)
--- NOTE | 2016-08-23 15:48 | NUR ---
Significant Event: Patient alert and oriented. Forgetful. 1 assist. Non weight bearing to right leg. [place] to right hip intact. Peritoneal dialysis. Takes medications with pudding or applesauce. Gastric emptying study done today. No report yet. Complained of gout starting to bother her today. Refused prednisone that was ordered for it. aCthleen Shanks APRN aware. Follow up:
--- NOTE | 2016-08-24 03:15 | NUR ---
Significant Event: Patient alert and very quiet tonight. Can be forgetful. Up one assist scoot/slide board, NWB to her right leg. Has voided a small amt. x 2. Denies pain but took Tylenol for comfort at bedtime to assist with sleep. Takes meds with applesauce. Patient has a hard time taking HS meds w/o vomiting, given zofran 30 min before meds. Patient did not like all the meds but kept them down. Peritoneal dialysis t/o the night. Follow up: Discharge on Tue. Dr Mcrae needs to see her before discharge darrell need to be removed from her right hip.
--- NOTE | 2016-08-24 14:26 | NUR ---
Significant Event: Patient alert and oriented. Forgetful. 1 assist scoot transfer. Takes meds with pudding or applesauce. Peritoneal dialysis daily at night. Roma to right hip intact. notified and will see patient at the end of the week. He is aware that she will be going home on Tuesday. Gastric emptying study was normal. EEG last week showed a hiatial hernia. Still having intermittent nausea, belching and dry heaves. Zofran given this morning with some relief. Follow up:
--- NOTE | 2016-08-24 14:40 | NUR ---
D: TR progress note for 08/24/16. I: Pt seen for 3 units at 1230 for community integration skills building, functional transfers, and safety awareness. R: Pt seen for functional skills building working on mobility, transfers, and community skills in anticipation for discharge back into community with family. Pt's family present for session, transferred into daughter's vehicle. Pt completed slideboard transfers (x2) in/out of vehicle SBA with max cues for technique and to maintain WB status, was dependent for slideboard management, and min assist for BLE management due to RLE with seat surface adapted by use of trash bag to ease task. Education and modeling done with family on WC management to assemble/dissemble, proper lifting techniques and WC safety with brakes, foot plates and arm rests. Pt/family would like to use own van for transportation with plans made for PT to complete training this pm. P: Will continue to see to address goals and plan of care.
--- NOTE | 2016-08-25 03:31 | NUR ---
Significant Event: TYLENOL 500 MG GIVEN AT 2055 FOR C/O PAIN TO RT UPPER RIBS. THEN 500 MG TYLENOL AT 2300 FOR RESTLESSNESS, DENIED PAIN AT THAT TIME. HAS SLEPT POORLY ALL NIGHT. HAD ZOFRAN AT SHIFT CHANGE, UNABLE TO TAKE ALL OF MEDS WTIH SUPPER. REFUSED DULCOLAX TABS. COLOR IS SALLOW. DIALYSIS RUNNING WITHOUT PROBLEMS. ANDRY INTACT TO RT HIP. IS TO BE DISMISSED END OF WEEK. UP TO BATHROOM WITH 1 ASSIST AND WHEELCHAIR, TAKES MEDS WHOLE IN APPLESAUCE, TAKES POORLY BUT NO EMESIS WITH 2100 MEDS. Follow up:
--- NOTE | 2016-08-25 12:05 | NUR ---
D: TR progress note for 08/25/16. I: Pt seen for 2 units at 1100 in group session for education on safety when around pets/animals, group participation, and leisure education. management, and coping strategies . R: Pt seen for functional skills building working on relaxation techniques, stress/pain management, continued education on coping skills using animals for Animal Assisted Therapy. Pt completed functional communication skills independently which included introduction and shared with group about own pet. Pt independently with interaction with animals, volunteers and peers. Pt SBA when handling and maneuvering animals during Animal Assisted Therapy utilizing BUE with goof safety awareness and good bilateral scanning. Education done on safety with ambulation/mobility in homes when around animals, safety with possibility of poor skin integrity and utilizing pets to assist with coping and stress/pain management when opportunity available. P: Will continue to see to address goals and plan of care.
--- NOTE | 2016-08-25 14:56 | NUR ---
Significant Event: Alert and oriented X 3. Room air. SBP 137, HR 77. [place] to right hip intact. Medicaations taken whole in applesauce. Patient has difficulty at times taking medication with nausea and vomitting. No episodes this shift, took medication fine. Denies any pain. Up with 1 assist scoot transfer. CSM good. Refuses nystatin, ok to DC per physician. Pleasant and cooperative with cares. Follow up:
--- NOTE | 2016-08-26 05:55 | NUR ---
Significant Event: Patient is alert and mostly oriented but forgetful. Wakes at time disoriented to time of day. Up 1 assist scoot pivot transfers. Takes meds witrh applesauce. Has issues with nausea especially when taking her meds. Was given Zofran brefore HS meds last night and still had an emesis. Roma still in her incision to her right thigh. Took 1 Ultram at bedtime for comfort to help her sleep. Follow up: Discharge Tuesday to be here to see her.
--- NOTE | 2016-08-26 10:00 | NUR ---
Significant Event:Therapy showered and dressed pt this am, FIM shower. Spread medication out, pt only had one episode after swallowing 1 pill and had gag reflex, but no emesis. Family here @ intervals, good support. Up with 1 assist and sccot transfer. Pt has been pleasant and cooperative with plan of care. Follow up: Continues Peritoneal Dialysis @ [facility]. NWB right leg, 2 assist pivot transfer. Plans for discharge Fri.
--- NOTE | 2016-08-26 12:21 | NUR ---
SPOKE W/ PT REGARDING APPROPRIATE DIET STRATGIES FOR HIATEL HERNIA. WRITTEN INFO PROVIDED. PT DOES NOT HAVE ANY QUESTIONS AT THIS TIME.
--- NOTE | 2016-08-26 14:46 | NUR ---
D: Product Marketing Executive Team Conference Follow up for 08/24/16 and Discharge Note for 08/27/16 I: Input from patient/family R: Met with: patient, , daughter, [id number], Erlinda Arndt LAB TECHNOLOGIST Discussed rehab plan, patient progress, discharge plan and estimated length of stay of d/c planned on 08/27/16 Patient/Family Preference: patient and family are in agreement. Anticipated discharge disposition: Education completed: Education was completed with patient and family regarding length of stay, progress in therapy and discharge plan. Assessment/Recommendation: Team recommends d/c to home with home health care. P: Case Coordination: Ayanna is an 80 year old woman from [place], [place] admitted after a hip fracture. She has good family support. Plan is for patient to d/c on Tuesday after Dr. Jai Fall has seen patient. Home health care is being set up through [facility] with satellite services in [place]. Patient already has her wheelchair and slide board for d/c. Family purchased patient a walker. No other needs identified at this time. Patient will have 27/09 supervision and assistance for safety. Will call patient next week to see how she is doing post discharge.
--- NOTE | 2016-08-26 18:30 | NUR ---
Dr Syed here, reported he had been visiting with the pt and , and they were thinking about stopping Pheripheral Diaylsis. Maybe even as soon as tonight. Dr Syed went back to visit with couple again, and Home Health, Hospice options, as he knows pt to be discharged tomorrow..
[2016-08-27 04:00] LABS: BASOPHIL % 0.1 %; EOSINOPHIL % 0.1 %; HEMATOCRIT 26.5 % (30.0-46.0); HEMOGLOBIN 8.4 g/dL (10.0-15.0); IMMATURE GRANULOCYTE # 0.5 K/uL (0.0-0.3); IMMATURE GRANULOCYTE % 3.4 %; LYMPHOCYTE # 0.6 K/uL (0.8-4.0); LYMPHOCYTE % 4.1 %; MCH 31.5 pg (27.0-34.0); MCHC 31.7 gm/dL (32.0-36.5); MCV 99.3 fl (83.0-98.0); MONOCYTE # 1.5 K/uL (0.0-1.0); MPV 10.5 fl (9.4-12.4); NEUTROPHIL # (ANC) 11.3 K/uL (1.8-7.8); NEUTROPHIL % 81.3 %; NRBC % 0 /100WBC (0-0.00); PLATELET COUNT 238 K/uL (150-450); RBC 2.67 M/uL (3.00-5.00); RDW-CV 18.1 % (11.9-14.6); WBC 13.9 K/uL (4.0-11.0)
[2016-08-27 04:15] LABS: CALCIUM 9.3 mg/dL (8.5-10.5)
[2016-08-27 04:17] LABS: ALBUMIN 1.6 gm/dL (3.5-5.0); CREATININE 13.3 mg/dL (0.5-1.1)
--- NOTE | 2016-08-27 05:15 | NUR ---
Significant Event: Pt A&Ox3, but can be forgetful. It was decided by family, pt wants to be on hospice. Dialysis was not performed. Pt also refused all meds. Did give her a zofran and she would be ok to take tylenol. Follow up: Pt expected to be d/c'd today.
[2016-08-27] MEDS ORDERED: COLACE100 MG PO (10:43)
[2016-08-27] MEDS ORDERED: NORCO 5-325 TA1 EACH PO (10:48)
[2016-08-27] MEDS ORDERED: ENULOSE UD L30 ML/EA PO (10:50)
[2016-08-27] MEDS ORDERED: MILK OF MA400 MG/5 M PO (10:51)
[2016-08-27] MEDS ORDERED: MIRALAX17 GM PO (10:52)
[2016-08-27] MEDS ORDERED: ZOFRAN4 MG PO (10:52)
[2016-08-27] MEDS ORDERED: ULTRAM50 MG PO (10:54)
[2016-08-27] MEDS ORDERED: MORPHINE 20MG/ML PO (10:57)
[2016-08-27] MEDS ORDERED: ATIVAN 1 MG1 MG SL (10:58)
[2016-08-27] MEDS ORDERED: ATROPINE 0.01%-10 ML SL (10:59)
--- NOTE | 2016-08-27 13:37 | NUR ---
D: Discharge instructions given to patient and to family. Prescriptions sent with patient. Patient and family voice understanding of dismissal instructions. Dismissed per w/c with daughter and transport staff. Patient alert and oriented.
--- NOTE | 2016-08-28 09:29 | NUR ---
Discharge Note: There was a change in discharge on the date of dismissal. Patient decided the night before leaving that she wished to go home with Hospice services. She elected to discontinue her peritoneal dialysis. The family is in agreed with patient's decision. Hospice services were set up with [facility] health care. They will be out on Tuesday morning to see and assess patient. Will call next week to see how patient is doing.
== END 2016-08-27 11:55 | disposition hospice, home (50) | DRG 559 ==
LOC: GIRP 10:50
PROVIDERS: Nurse Practitioner Family; ADMIT Physical Medicine & Rehabilitation
PROC: 3E1M39Z Irrigation of Peritoneal Cavity using Dialysate, Percutaneous Approach (ICD-10-PCS; principal; 2016-08-06)
PROC: 0D758ZZ Dilation of Esophagus, Via Natural or Artificial Opening Endoscopic (ICD-10-PCS; 2016-08-17)
PROC: 0DB68ZX Excision of Stomach, Via Natural or Artificial Opening Endoscopic, Diagnostic (ICD-10-PCS; 2016-08-17)
DX: S72.001D Fracture of unspecified part of neck of right femur, subsequent encounter for closed fracture with routine healing (principal); N18.6 End stage renal disease; I13.2 Hypertensive heart and chronic kidney disease with heart failure and with stage 5 chronic kidney disease, or end stage renal disease; E87.0 Hyperosmolality and hypernatremia; K25.9 Gastric ulcer, unspecified as acute or chronic, without hemorrhage or perforation; I50.30 Unspecified diastolic (congestive) heart failure; R26.89 Other abnormalities of gait and mobility; Z99.2 Dependence on renal dialysis; I25.10 Atherosclerotic heart disease of native coronary artery without angina pectoris; K21.9 Gastro-esophageal reflux disease without esophagitis; Z51.5 Encounter for palliative care; Z66 Do not resuscitate; K44.9 Diaphragmatic hernia without obstruction or gangrene; K22.2 Esophageal obstruction; W19.XXXD Unspecified fall, subsequent encounter; S32.810D Multiple fractures of pelvis with stable disruption of pelvic ring, subsequent encounter for fracture with routine healing; Z95.1 Presence of aortocoronary bypass graft; F41.9 Anxiety disorder, unspecified; E78.5 Hyperlipidemia, unspecified; K59.00 Constipation, unspecified; D64.9 Anemia, unspecified; M10.9 Gout, unspecified; R11.2 Nausea with vomiting, unspecified; K29.70 Gastritis, unspecified, without bleeding
CPT/HCPCS: A9541; C1726; J1644; J2405; J7030; J7512; Q0162; Q4081